=== PATIENT | female | born 1955 | race Caucasian/White ===

== ENCOUNTER 2016-11-14 15:43 | Emergency (ER) | payer BC ==
[2016-11-14 16:45] VITALS: BP 149/91
== END 2016-11-14 17:00 | disposition left against medical advice (07) ==
LOC: UCEAST 15:43
DX: R10.9 Unspecified abdominal pain (principal); Z53.21 Procedure and treatment not carried out due to patient leaving prior to being seen by health care provider

== ENCOUNTER 2016-11-14 17:22 | Emergency (ER) | payer BC ==
[2016-11-14 17:27] VITALS: BP 163/99
[2016-11-14 18:35] LABS: Hematocrit 43 % (35-47); Hemoglobin 14.4 g/dl (12.0-16.0); Mean Corpuscular HGB Conc 33 g/dl (31-36); Mean Corpuscular Hemoglobin 31 pg (27-31); Mean Corpuscular Volume 92 fL (80-97); Mean Platelet Volume 8 um3 (7.4-10.4); Red Blood Count 4.68 10^6/ul (4.0-5.4); Red Cell Distribution Width 14 % (10.5-15); White Blood Count 5.9 10^3/ul (3.5-10.8)
[2016-11-14 18:52] LABS: ALT 14 U/L (7-52); AST 18 U/L (13-39); Albumin 4.5 g/dL (3.2-5.2); Alkaline Phosphatase 59 U/L (34-104); Amylase 54 U/L (29-103); Anion Gap 5 mmol/L (2-11); BUN/Creatinine Ratio 11.8 (8-20); Blood Urea Nitrogen 9 mg/dL (6-24); C Reactive Protein < 1.00 mg/L (< 5.00); CO2 Carbon Dioxide 29 mmol/L (22-32); Calcium 9.7 mg/dL (8.6-10.3); Chloride 97 mmol/L (101-111); EGFR African American 100.2 (>60); EGFR Non-African American 77.9 (>60); Glucose 93 mg/dL (70-100); Lipase 13 U/L (11.0-82.0); Potassium 3.6 mmol/L (3.5-5.0); Sodium 131 mmol/L (133-145); Total Protein 7.5 g/dL (6.4-8.9)
--- NOTE | 2016-11-14 19:12 | RAD ---
INDICATION: ] Right upper quadrant pain COMPARISON: Complete abdominal sonogram August 27, 2014 TECHNIQUE: Longitudinal and transverse scans of the right upper quadrant were obtained. Doppler interrogation of the hepatic and portal venous system was performed. FINDINGS: Liver: The liver is normal in size and echogenicity. There is a 1 cm right hepatic cyst, unchanged. The liver measures 12.8 cm in cephalocaudal dimension. Vessels: There is normal hepatic and portal venous flow. Bile ducts: There is no evidence of intrahepatic or extrahepatic ductal dilatation. The common duct measures 0.8 cm. Gallbladder: The sonographic appearance of the gallbladder is normal. There is no evidence of cholelithiasis, thickening of the gallbladder wall, or pericholecystic fluid. Pancreas: The visualized pancreas appears normal Right kidney: The right kidney is normal in size and echogenicity. There are no masses or calculi. There is no evidence of hydronephrosis. The right kidney measures 9.9 x 4.3 x 5.4 cm. IVC and aorta: The aorta and superior vena cava appear normal. Fluid: There is no ascites. Other: None. IMPRESSION: NORMAL GALLBLADDER. MILDLY PROMINENT COMMON DUCT, UNCHANGED. STABLE HEPATIC CYST, UNCHANGED
--- NOTE | 2016-11-14 20:39 | ED ---
Dana Lomeli Erika, scribed for Clifton Layton MD on 11/14/16 at 1800 . Abdominal Pain/Female - HPI Summary HPI Summary: Patient is a 61-year-old female presenting to the ED with a CC of right-sided abdominal pain. Patient reports she woke up at 02:45 this morning, and then developed the pain at 03:45. She reports the pain lasted for 1-1.5 hours, and was aggravated by movement. Patient had associated diarrhea and lightheadedness , both of which have resolved. Currently, patient denies any symptoms. She reports that she had the same symptoms in the past. Pt was sent to the ED by her PCP Dr. Neri. Hx melanoma, HTN. At this time, pt declines US and CT and would just like blood work. - History of Current Complaint Chief Complaint: EDAbdPain Stated Complaint: ABD PAIN Time Seen by Provider: 11/14/16 17:45 Hx Obtained From: Patient Onset/Duration: Sudden Onset, Lasting Hours - 1 hour, Resolved Timing: Constant Severity Initially: Moderate Severity Currently: None Pain Intensity: 0 Pain Scale Used: 0-10 Numeric Location: Discrete At: RUQ, Discrete At: RLQ Radiates: No Aggravating Factor(s): Movement Alleviating Factor(s): Spontaneous Resolution Associated Signs and Symptoms: Positive: Diarrhea, Other: - lightheadedness Allergies/Adverse Reactions: Allergies Allergy/AdvReac Type Severity Reaction Status Date / Time Latex AdvReac Mild irritates Verified 11/14/16 16:29 skin PMH/Surg Hx/FS Hx/Imm Hx Endocrine/Hematology History: Denies: Hx Diabetes, Hx Thyroid Disease Cardiovascular History: Reports: Hx Hypertension Denies: Hx Pacemaker/ICD Respiratory History: Denies: Hx Asthma, Hx Chronic Obstructive Pulmonary Disease (COPD) GI History: Reports: Hx Gastroesophageal Reflux Disease - OCCASSIONAL IN PAST, HAS MEDS, DOESN'T TAKE, Hx Irritable Bowel - Hx OF, NO CURRENT Sx or MEDS Denies: Hx Ulcer History: Denies: Hx Renal Disease Musculoskeletal History: Reports: Hx Arthritis - FEET, LOW BACK, NECK Sensory History: Denies: Hx Hearing Aid Neurological History: Reports: Hx Headaches Comment Only: Hx Migraine - Hx OF, NONE IN 10 YEARS Psychiatric History: Denies: Hx Panic Disorder - Cancer History Cancer Type, Location and Year: Melanoma- in bwn toes Hx Chemotherapy: No Hx Radiation Therapy: No - Surgical History Surgery Procedure, Year, and Place: in 40's had oophorectomy and hysterectomy. BREAST IMPLANTS - SALINE. BIOPSY - NECK, AXILARY, - BENIGN Hx Anesthesia Reactions: Yes - AFTER HYSTERECTOMY N/V Infectious Disease History: No Infectious Disease History: Denies: Hx Hepatitis, Hx Human Immunodeficiency Virus (HIV), Traveled Outside the [place] in Last 30 Days - Family History Family History: Denies FHx breast cancer - Social History Lives: With Family Alcohol Use: Occasionally Alcohol Amount: MAYBE 1-2 DRINKS/MONTH Hx Substance Use: No Substance Use Type: Reports: None Hx Tobacco Use: No Smoking Status (MU): Never Smoked Tobacco Have You Smoked in the Last Year: No Review of Systems Positive: Abdominal Pain, Diarrhea Neurological: Other - lightheadedness All Other Systems Reviewed And Are Negative: Yes Physical Exam - Summary Physical Exam Summary: VITAL SIGNS: Reviewed. GENERAL: Patient is a well developed and nourished female who is lying comfortable in the stretcher. Patient is not in any acute respiratory distress. HEAD AND FACE: Normocephalic and atraumatic. EYES: PERRLA, EOMI x 2, No injected conjunctiva. EARS: Hearing grossly intact. Ear canals and tympanic membranes are WNL. MOUTH: Oropharynx within normal limits. NECK: Supple, trachea is midline, no adenopathy, no JVD. CHEST: Symmetric, no tenderness at palpation LUNGS: Clear to auscultation bilaterally. No wheezing or crackles. CVS: RRR,, S1 and S2 present, no murmurs or gallops appreciated. ABDOMEN: Soft, non-tender. No signs of distention. Positive bowel sounds. No rebound no guarding, and no masses palpated. No abdominal bruit or pulsations. EXTREMITIES: FROM in all major joints, no edema, no cyanosis or clubbing. NEURO: Alert and oriented x 3. No acute neurological deficits. Speech is normal. SKIN: Dry and warm Triage Information Reviewed: Yes Vital Signs On Initial Exam: Initial Vitals Temp Pulse Resp BP Pulse Ox 98 F 78 18 163/99 100 11/14/16 17:22 11/14/16 17:22 11/14/16 17:22 11/14/16 17:22 11/14/16 17:22 Vital Signs Reviewed: Yes Diagnostics - Vital Signs Vital Signs Temp Pulse Resp BP Pulse Ox 11/14/16 17:22 98 F 78 18 163/99 100 - Laboratory Lab Results: Lab Results 11/14/16 Range/Units 18:15 WBC 5.9 (3.5-10.8) 10^3/ul RBC 4.68 (4.0-5.4) 10^6/ul Hgb 14.4 (12.0-16.0) g/dl Hct 43 (35-47) % MCV 92 (80-97) fL MCH 31 (27-31) pg MCHC 33 (31-36) g/dl RDW 14 (10.5-15) % Plt Count 315 (150-450) 10^3/ul MPV 8 (7.4-10.4) um3 Neut % (Auto) 52.6 (38-83) % Lymph % (Auto) 39.5 (25-47) % [place] % (Auto) 5.8 (1-9) % Eos % (Auto) 1.3 (0-6) % Baso % (Auto) 0.8 (0-2) % Absolute Neuts (auto) 3.1 (1.5-7.7) 10^3/ul Absolute Lymphs (auto) 2.3 (1.0-4.8) 10^3/ul Absolute Monos (auto) 0.3 (0-0.8) 10^3/ul Absolute Eos (auto) 0.1 (0-0.6) 10^3/ul Absolute Basos (auto) 0 (0-0.2) 10^3/ul Absolute Nucleated RBC 0 10^3/ul Nucleated RBC % 0 Result Diagrams: 11/14/16 18:15 11/14/16 18:15 Lab Statement: Any lab studies that have been ordered have been reviewed, and results considered in the medical decision making process. - Ultrasound No standard instances Ultrasound Interpretation Completed By: Radiologist - Abdomen US - IMPRESSION: NORMAL GALLBLADDER. MILDLY PROMINENT COMMON DUCT, UNCHANGED. STABLE HEPATIC CYST , UNCHANGED Abdominal Pain Fem Course/Dx - Course Course Of Treatment: Patient is a 61-year-old female presenting to the ED with a CC of right-sided abdominal pain. Patient reports she woke up at 02:45 this morning, and then developed the pain at 03:45. She reports the pain lasted for 1 -1.5 hours, and was aggravated by movement. Patient had associated diarrhea and lightheadedness, both of which have resolved. Currently, patient denies any symptoms. She reports that she had the same symptoms in the past. Pt was sent to the ED by her PCP Dr. Neri. Hx melanoma, HTN. At this time, pt declines US and CT and would just like blood work. She reports that she has had too many abdominal and pelvic CT's already. Blood work WNL except for a sodium of 131. WBC is normal. The pt does not have an increased WBC'S or increased CRP. RUQ US shows no change from previous, rest of reports as above. I discussed the findings and test results with the pt, and she still declines the CT A/P which was recommended by Dr. Neri. She is recommended to follow up tomorrow with Dr. Neri, and if needed, he could order an outpatient CT A/P if the patient agrees. At this point the patient continues to be asymptomatic, and the PE at discharge shows the abdomen is soft and non-tender with positive bowel sounds. The patient is A&Ox3 and hemodynamically stable. I discusse the case with Dr. Jimenez. She agrees with plan. - Diagnoses Differential Diagnosis: Positive: Appendicitis, Constipation, Diverticulitis, Gall Bladder Disease, Pancreatitis, Urinary Tract Infection Provider Diagnoses: Abdominal pain - Provider Notifications Discussed Care Of Patient With: Dr. Jimenez (from pt's PCP group) at 18:13 - agrees that if the patient wants the CT and US, they should be done, and if not , all the concerns can be directed to the PCP. Discharge - Discharge Plan Condition: Stable Disposition: HOME Patient Education Materials: Abdominal Pain (ED) Referrals: Ravin Neri MD [Primary Care Provider] - 1 Day Additional Instructions: Please follow up with Dr. Neri tomorrow. The documentation as recorded by the Dana cantrell Erika accurately reflects the service I personally performed and the decisions made by me, Clifton Layton MD.
== END 2016-11-14 19:45 | disposition home or self-care (01) ==
LOC: ED 17:22
DX: R10.84 Generalized abdominal pain (principal); R19.7 Diarrhea, unspecified; R42 Dizziness and giddiness
CPT/HCPCS: 36415; 76705; 80053; 82150; 83690; 85025; 86140; 99282

== ENCOUNTER 2017-01-25 17:23 | Emergency (ER) | payer BC ==
[2017-01-25 17:44] VITALS: BP 160/90
--- NOTE | 2017-01-25 18:20 | UC ---
Dizzy HPI HPI Summary: AFTER WORK TODAY WAS RUNNING SOME ERRANDS AND WAS IN THE GREENHOUSE FOR A SHORT WHILE. AROUND 3PM SHE DEVELOPED A SENSATION OF LIGHTHEADEDNESS AND FELT LIKE SHE WAS GOING TO PASS OUT. HAS FELT "OFF" SINCE THEN. NO SOB OR CP. NO LOC. HAS SOME NECK PAIN AND LOOMIS. HAS A STRESSFUL JOB. HAD A SIMILAR EXPERIENCE OVER 10 YEARS AGO THAT RESOLVED SPONTANEOUSLY. HAS UNTREATED BP. - History Of Current Complaint Chief Complaint: UCDizziness Stated Complaint: DIZZINESS Time Seen by Provider: 01/25/17 17:45 Hx Obtained From: Patient Onset/Duration: Sudden Onset, Lasting Hours, Still Present Timing: Constant Severity Initially: Moderate Severity Currently: Moderate Pain Intensity: 0 Pain Scale Used: 0-10 Numeric Character: Lightheaded, Dizzy Aggravating Factor(s): Nothing Alleviating Factor(s): Nothing - Allergies/Home Medications Allergies/Adverse Reactions: Allergies Allergy/AdvReac Type Severity Reaction Status Date / Time Latex AdvReac Mild irritates Verified 01/25/17 17:31 skin PMH/Surg Hx/FS Hx/Imm Hx Endocrine History Of: Denies: Diabetes, Thyroid Disease Cardiovascular History Of: Reports: Cardiac Disorders - some irregularity follows up with pcp, Hypertension Denies: Pacemaker/ICD Respiratory History Of: Denies: COPD, Asthma GI/ History Of: Denies: Ulcer, Renal Disease Neurological History Of: Comment Only: Migraine - Hx OF, NONE IN 10 YEARS Cancer History Of: Denies: Breast Cancer - Surgical History Surgical History: Yes Surgery Procedure, Year, and Place: in 40's had oophorectomy and hysterectomy. BREAST IMPLANTS - SALINE. BIOPSY - NECK, AXILARY, - BENIGN - Family History Known Family History: Positive: Cardiac Disease, Hypertension, Diabetes Family History: Denies FHx breast cancer - Social History Alcohol Use: Occasionally Alcohol Amount: MAYBE 1-2 DRINKS/MONTH Substance Use Type: None Smoking Status (MU): Never Smoked Tobacco Have You Smoked in the Last Year: No - Immunization History Most Recent Influenza Vaccination: None Review of Systems Constitutional: Negative Respiratory: Negative Cardiovascular: Negative Gastrointestinal: Negative Musculoskeletal: Other: - NECK PAIN Neurological: Headache, Other - DIZZY All Other Systems Reviewed And Are Negative: Yes Physical Exam Triage Information Reviewed: Yes Appearance: Well-Appearing, No Pain Distress, Well-Nourished Vital Signs: Initial Vital Signs Temp 98.6 F 01/25/17 17:27 Pulse 85 01/25/17 17:27 Resp 16 01/25/17 17:27 BP 198/115 01/25/17 17:27 Pulse Ox 97 01/25/17 17:27 Vital Signs Reviewed: Yes Eyes: Positive: Conjunctiva Clear ENT: Positive: Hearing grossly normal Neck: Positive: Supple, Nontender, No Lymphadenopathy Respiratory Exam: Normal Cardiovascular Exam: Normal Abdomen Description: Positive: Soft Musculoskeletal: Positive: No Edema Neurological: Positive: Alert Psychological: Positive: Age Appropriate Behavior Skin: Negative: rashes Diagnostics - EKG Cardiac Rate: NL - 82BPM Cardiac Rhythm: Sinus: Normal Ectopy: None ST Segment: Normal Dizzy Course/Dx - Differential Dx/Diagnosis Provider Diagnoses: DIZZINESS, PRESYNCOPE, ELEVATED BP - Physician Notifications Discussed Patient Care With: LUC MARTINEZ Time Discussed With Above Provider: 18:00 - TO [facility]BULANCE Discharge - Discharge Plan Condition: Stable Disposition: TRANS HIGHER LVL OF CARE FAC Referrals: Ravin Neri MD [Primary Care Provider] -
== END 2017-01-25 18:15 | disposition short-term general hospital (02) ==
LOC: UCEAST 17:23
DX: R42 Dizziness and giddiness (principal); R55 Syncope and collapse; R03.0 Elevated blood-pressure reading, without diagnosis of hypertension; Z91.040 Latex allergy status; I10 Essential (primary) hypertension; Z90.710 Acquired absence of both cervix and uterus
CPT/HCPCS: 93005; 99213; G0463

== ENCOUNTER 2017-01-25 18:38 | Emergency (ER) | payer BC ==
[2017-01-25 20:24] LABS: Urine Bilirubin Negative (Negative); Urine Glucose Negative (Negative); Urine Nitrite Negative (Negative)
[2017-01-25 20:52] LABS: Hematocrit 41 % (35-47); Hemoglobin 13.7 g/dl (12.0-16.0); Mean Corpuscular HGB Conc 34 g/dl (31-36); Mean Corpuscular Hemoglobin 30 pg (27-31); Mean Corpuscular Volume 91 fL (80-97); Mean Platelet Volume 8 um3 (7.4-10.4); Red Blood Count 4.49 10^6/ul (4.0-5.4); Red Cell Distribution Width 13 % (10.5-15); White Blood Count 4.5 10^3/ul (3.5-10.8)
[2017-01-25 21:07] LABS: BUN/Creatinine Ratio 12.1 (8-20); Calcium 9.3 mg/dL (8.6-10.3); EGFR African American 117.9 (>60); EGFR Non-African American 91.7 (>60); Globulin 2.8 g/dL (2-4); Magnesium 2.1 mg/dL (1.9-2.7); Potassium 3.3 mmol/L (3.5-5.0); Total Bilirubin 0.6 mg/dL (0.2-1.0); Total Protein 6.8 g/dL (6.4-8.9)
[2017-01-25 21:08] LABS: Troponin I 0.01 ng/mL (<0.04)
[2017-01-25 21:43] LABS: TSH (Thyroid Stimulating Horm) 1.34 mcIU/mL (0.34-5.60)
[2017-01-25 22:06] VITALS: BP 130/78
--- NOTE | 2017-01-25 22:43 | ED ---
Dana Lomeli Erika, scribed for Hansel Villavicencio MD on 01/25/17 at 2007 . Syncope/Near Syncope - HPI Summary HPI Summary: Patient is a 61-year-old female presenting to the ED with a CC of lightheadedness. Patient reports she worked today and felt well, but then began feeling lightheaded around 15:00. Lightheadedness was constant, and not alleviated by lying down or drinking water. Pt notes polydipsia. She reports that lightheadedness has gradually worsened. Now, pt reports she feels weak and tired. She denies abdominal pain. Hx syncopal episodes in . - History Of Current Complaint Chief Complaint: EDSyncope Time Seen by Provider: 01/25/17 19:49 Hx Obtained From: Patient Onset/Duration: Gradual Onset, Lasting Hours, Still Present Timing: Constant Alleviating Factor(s): Nothing Associated Signs And Symptoms: Weakness, Other - fatigue - Allergies/Home Medications Allergies/Adverse Reactions: Allergies Allergy/AdvReac Type Severity Reaction Status Date / Time Latex AdvReac Mild irritates Verified 01/25/17 17:31 skin PMH/Surg Hx/FS Hx/Imm Hx Endocrine/Hematology History: Denies: Hx Diabetes, Hx Thyroid Disease Cardiovascular History: Reports: Hx Hypertension Denies: Hx Pacemaker/ICD Respiratory History: Denies: Hx Asthma, Hx Chronic Obstructive Pulmonary Disease (COPD) GI History: Reports: Hx Gastroesophageal Reflux Disease - OCCASSIONAL IN PAST, HAS MEDS, DOESN'T TAKE, Hx Irritable Bowel - Hx OF, NO CURRENT Sx or MEDS Denies: Hx Ulcer History: Denies: Hx Renal Disease Musculoskeletal History: Reports: Hx Arthritis - FEET, LOW BACK, NECK Sensory History: Denies: Hx Hearing Aid Neurological History: Reports: Hx Headaches Comment Only: Hx Migraine - Hx OF, NONE IN 10 YEARS Psychiatric History: Denies: Hx Panic Disorder - Cancer History Cancer Type, Location and Year: Melanoma- in bwn toes Hx Chemotherapy: No Hx Radiation Therapy: No - Surgical History Surgery Procedure, Year, and Place: in 40's had oophorectomy and hysterectomy. BREAST IMPLANTS - SALINE. BIOPSY - NECK, AXILARY, - BENIGN Hx Anesthesia Reactions: Yes - AFTER HYSTERECTOMY N/V Infectious Disease History: No Infectious Disease History: Denies: Hx Clostridium Difficile, Hx Hepatitis, Hx Human Immunodeficiency Virus (HIV), Traveled Outside the [place] in Last 30 Days - Family History Known Family History: Positive: Cardiac Disease, Hypertension, Diabetes Family History: Denies FHx breast cancer - Social History Alcohol Use: Occasionally Alcohol Amount: MAYBE 1-2 DRINKS/MONTH Hx Substance Use: No Substance Use Type: Reports: None Hx Tobacco Use: No Smoking Status (MU): Never Smoked Tobacco Have You Smoked in the Last Year: No Review of Systems Constitutional: Other - polydipsia Positive: Fatigue Negative: Abdominal Pain Neurological: Other - lightheadedness Positive: Weakness - generalized All Other Systems Reviewed And Are Negative: Yes Physical Exam Triage Information Reviewed: Yes Vital Signs On Initial Exam: Initial Vitals Temp Pulse Resp BP Pulse Ox 99.2 F 86 16 149/96 98 01/25/17 19:01 01/25/17 19:01 01/25/17 19:01 01/25/17 19:01 01/25/17 19:01 Vital Signs Reviewed: Yes Appearance: Positive: Well-Appearing, No Pain Distress Skin: Positive: Warm, Skin Color Reflects Adequate Perfusion, Dry Head/Face: Positive: Normal Head/Face Inspection Eyes: Positive: Normal ENT: Positive: Normal ENT inspection Neck: Positive: Supple, Nontender Respiratory/Lung Sounds: Positive: Clear to Auscultation, Breath Sounds Present Cardiovascular: Positive: RRR Abdomen Description: Positive: Nontender, Soft Bowel Sounds: Positive: Present Musculoskeletal: Positive: Normal Neurological: Positive: Normal Psychiatric: Positive: Affect/Mood Appropriate - [place] Coma Scale Coma Scale Total: 15 Diagnostics - Vital Signs Vital Signs Temp Pulse Resp BP Pulse Ox 01/25/17 19:01 99.2 F 86 16 149/96 98 - Laboratory Lab Results: Lab Results 01/25/17 01/25/17 01/25/17 Range/Units 19:18 20:40 20:40 WBC 4.5 (3.5-10.8) 10^3/ul RBC 4.49 (4.0-5.4) 10^6/ul Hgb 13.7 (12.0-16.0) g/dl Hct 41 (35-47) % MCV 91 (80-97) fL MCH 30 (27-31) pg MCHC 34 (31-36) g/dl RDW 13 (10.5-15) % Plt Count 282 (150-450) 10^3/ul MPV 8 (7.4-10.4) um3 Neut % (Auto) 42.0 (38-83) % Lymph % (Auto) 47.3 H (25-47) % [place] % (Auto) 7.6 (1-9) % Eos % (Auto) 1.9 (0-6) % Baso % (Auto) 1.2 (0-2) % Absolute Neuts (auto) 1.9 (1.5-7.7) 10^3/ul Absolute Lymphs (auto) 2.1 (1.0-4.8) 10^3/ul Absolute Monos (auto) 0.3 (0-0.8) 10^3/ul Absolute Eos (auto) 0.1 (0-0.6) 10^3/ul Absolute Basos (auto) 0.1 (0-0.2) 10^3/ul Absolute Nucleated RBC 0 10^3/ul Nucleated RBC % 0.1 D-Dimer, Quantitative (Less Than 230) ng/mL Sodium 128 L (133-145) mmol/L Potassium 3.3 L (3.5-5.0) mmol/L Chloride 94 L (101-111) mmol/L Carbon Dioxide 26 (22-32) mmol/L Anion Gap 8 (2-11) mmol/L BUN 8 (6-24) mg/dL Creatinine 0.66 (0.51-0.95) mg/dL Est GFR ( Amer) 117.9 (>60) Est GFR (Non-Af Amer) 91.7 (>60) BUN/Creatinine Ratio 12.1 (8-20) Glucose 85 (70-100) mg/dL Lactic Acid (0.5-2.0) mmol/L Calcium 9.3 (8.6-10.3) mg/dL Magnesium 2.1 (1.9-2.7) mg/dL Total Bilirubin 0.60 (0.2-1.0) mg/dL AST 18 (13-39) U/L ALT 13 (7-52) U/L Alkaline Phosphatase 63 (34-104) U/L Troponin I 0.01 (<0.04) ng/mL Total Protein 6.8 (6.4-8.9) g/dL Albumin 4.0 (3.2-5.2) g/dL Globulin 2.8 (2-4) g/dL Albumin/Globulin Ratio 1.4 (1-3) TSH 1.34 (0.34-5.60) mcIU/mL Urine Color Colorless Urine Appearance Clear Urine pH 8.0 (5-9) Ur Specific [place] 1.002 L (1.010-1.030) Urine Protein Negative (Negative) Urine Ketones Negative (Negative) Urine Blood Negative (Negative) Urine Nitrate Negative (Negative) Urine Bilirubin Negative (Negative) Urine Urobilinogen Negative (Negative) Ur Leukocyte Esterase Negative (Negative) Urine Glucose Negative (Negative) 01/25/17 01/25/17 Range/Units 20:40 20:40 WBC (3.5-10.8) 10^3/ul RBC (4.0-5.4) 10^6/ul Hgb (12.0-16.0) g/dl Hct (35-47) % MCV (80-97) fL MCH (27-31) pg MCHC (31-36) g/dl RDW (10.5-15) % Plt Count (150-450) 10^3/ul MPV (7.4-10.4) um3 Neut % (Auto) (38-83) % Lymph % (Auto) (25-47) % [place] % (Auto) (1-9) % Eos % (Auto) (0-6) % Baso % (Auto) (0-2) % Absolute Neuts (auto) (1.5-7.7) 10^3/ul Absolute Lymphs (auto) (1.0-4.8) 10^3/ul Absolute Monos (auto) (0-0.8) 10^3/ul Absolute Eos (auto) (0-0.6) 10^3/ul Absolute Basos (auto) (0-0.2) 10^3/ul Absolute Nucleated RBC 10^3/ul Nucleated RBC % D-Dimer, Quantitative < 200 (Less Than 230) ng/mL Sodium (133-145) mmol/L Potassium (3.5-5.0) mmol/L Chloride (101-111) mmol/L Carbon Dioxide (22-32) mmol/L Anion Gap (2-11) mmol/L BUN (6-24) mg/dL Creatinine (0.51-0.95) mg/dL Est GFR ( Amer) (>60) Est GFR (Non-Af Amer) (>60) BUN/Creatinine Ratio (8-20) Glucose (70-100) mg/dL Lactic Acid 0.5 (0.5-2.0) mmol/L Calcium (8.6-10.3) mg/dL Magnesium (1.9-2.7) mg/dL Total Bilirubin (0.2-1.0) mg/dL AST (13-39) U/L ALT (7-52) U/L Alkaline Phosphatase (34-104) U/L Troponin I (<0.04) ng/mL Total Protein (6.4-8.9) g/dL Albumin (3.2-5.2) g/dL Globulin (2-4) g/dL Albumin/Globulin Ratio (1-3) TSH (0.34-5.60) mcIU/mL Urine Color Urine Appearance Urine pH (5-9) Ur Specific [place] (1.010-1.030) Urine Protein (Negative) Urine Ketones (Negative) Urine Blood (Negative) Urine Nitrate (Negative) Urine Bilirubin (Negative) Urine Urobilinogen (Negative) Ur Leukocyte Esterase (Negative) Urine Glucose (Negative) Result Diagrams: 01/25/17 20:40 01/25/17 20:40 Lab Statement: Any lab studies that have been ordered have been reviewed, and results considered in the medical decision making process. - EKG 20:52 Cardiac Rate: NL - at 60 bpm EKG Rhythm: Sinus Rhythm Re-Evaluation - Re-Evaluation First Eval Re-Evaluation Time: 21:43 Comment: Discussed results with patient Course/Dx Course Of Treatment: Ms. Mary had a period of near syncope starting about 1630. She feels improved now but tired. She ambulated about here without difficulty and her exam was otherwise unremarkable. Her W/U was negative and her monitoring was normal. She will F/U. - Diagnoses Provider Diagnoses: Near syncope Discharge - Discharge Plan Condition: Stable Disposition: HOME Patient Education Materials: Near Syncope (ED) Referrals: Ravin Neri MD [Primary Care Provider] - 2 Days Additional Instructions: Please follow up with your PCP The documentation as recorded by the Dana cantrell Erika accurately reflects the service I personally performed and the decisions made by me, Hansel Villavicencio MD.
== END 2017-01-25 22:00 | disposition home or self-care (01) ==
LOC: ED 18:38
DX: R55 Syncope and collapse (principal); R53.1 Weakness; R53.83 Other fatigue; R42 Dizziness and giddiness
CPT/HCPCS: 36415; 80053; 81003; 83605; 83735; 84443; 84484; 85025; 85379; 93005; 99283

== ENCOUNTER 2017-01-27 08:24 | Emergency (ER) | payer BC ==
[2017-01-27 08:37] VITALS: BP 133/85
--- NOTE | 2017-01-27 10:55 | UC ---
Skin Complaint HPI - HPI Summary HPI Summary: TICK ON BACK SINCE YESTERDAY. REMOVED MOST OF IT BUT HEAD IS STILL IN THERE. WOULD LIKE PROPHYLAXIS AGAINST LYME DISEASE. NO FEVER, NO RASH, NO MUSCLE ACHES. - History of Current Complaint Chief Complaint: UCSkin Time Seen by Provider: 01/27/17 09:54 Stated Complaint: TICK BITE Hx Obtained From: Patient Onset/Duration: Sudden Onset, Lasting Hours, Still Present Skin Exposure Onset/Duration: Hours Ago Onset Severity: Mild Current Severity: None Pain Intensity: 0 Pain Scale Used: 0-10 Numeric Location: Discrete - RIGHT BACK Aggravating: Nothing Alleviating: Nothing Associated Signs & Symptoms: Positive: Rash Related History: Insect Bite/Sting, Possible Reaction to: Insect - Allergy/Home Medications Allergies/Adverse Reactions: Allergies Allergy/AdvReac Type Severity Reaction Status Date / Time Latex AdvReac Mild irritates Verified 01/25/17 17:31 skin Review of Systems Constitutional: Negative Skin: Other - RIGHT BACK, TICK FRAGMENT EMBEDDED IN SKIN Eyes: Negative ENT: Negative Respiratory: Negative Cardiovascular: Negative Gastrointestinal: Negative Genitourinary: Negative Motor: Negative Neurovascular: Negative Musculoskeletal: Negative Neurological: Negative Psychological: Negative All Other Systems Reviewed And Are Negative: Yes PMH/Surg Hx/FS Hx/Imm Hx Previously Healthy: Yes Endocrine History Of: Denies: Diabetes, Thyroid Disease Cardiovascular History Of: Reports: Cardiac Disorders - some irregularity follows up with pcp, Hypertension Denies: Pacemaker/ICD Respiratory History Of: Denies: COPD, Asthma GI/ History Of: Denies: Ulcer, Renal Disease Neurological History Of: Comment Only: Migraine - Hx OF, NONE IN 10 YEARS Cancer History Of: Denies: Breast Cancer - Surgical History Surgical History: Yes Surgery Procedure, Year, and Place: in 40's had oophorectomy and hysterectomy. BREAST IMPLANTS - SALINE. BIOPSY - NECK, AXILARY, - BENIGN - Family History Known Family History: Positive: Cardiac Disease, Hypertension, Diabetes Family History: Denies FHx breast cancer - Social History Occupation: Employed Full-time Lives: With Family Alcohol Use: Occasionally Alcohol Amount: MAYBE 1-2 DRINKS/MONTH Substance Use Type: None Smoking Status (MU): Never Smoked Tobacco Have You Smoked in the Last Year: No - Immunization History Most Recent Influenza Vaccination: None Physical Exam Triage Information Reviewed: Yes Appearance: Well-Appearing, No Pain Distress, Well-Nourished Vital Signs: Initial Vital Signs Temp 98.7 F 01/27/17 08:32 Pulse 73 01/27/17 08:32 Resp 16 01/27/17 08:32 BP 133/85 01/27/17 08:32 Pulse Ox 100 01/27/17 08:32 Vital Signs Reviewed: Yes Eye Exam: Normal ENT Exam: Normal ENT: Positive: Normal ENT inspection, Hearing grossly normal, Pharynx normal, TMs normal Dental Exam: Normal Neck exam: Normal Neck: Positive: Supple, Nontender Respiratory Exam: Normal Respiratory: Positive: Chest non-tender, Lungs clear, Normal breath sounds, No respiratory distress Cardiovascular Exam: Normal Cardiovascular: Positive: RRR, No Murmur, Pulses Normal Abdominal Exam: Normal Musculoskeletal Exam: Normal Musculoskeletal: Positive: Strength Intact, ROM Intact Neurological Exam: Normal Psychological Exam: Normal Skin: Positive: Other - TICK FRAGMENT IN RIGHT MID BACK - Additional Comments TICK FRAGMENT IN RIGHT MID BACK REMOVED USING FORCEPS AND ALCOHOL PADS. PATIENT TOLERATED PROCEDURE WELL Course/Dx - Differential Diagnoses - Skin Complaint Differential Diagnoses: Cellulitis, Tick Born Illness - Diagnoses Provider Diagnoses: TICK FRAGMENT REMOVAL. TICK BITE PROPHYLAXIS Discharge - Discharge Plan Condition: Stable Disposition: HOME Prescriptions: DOXYcycline CAP(*) [DOXYcycline 100MG CAP(*)] 100 mg PO ONCE #2 cap Patient Education Materials: Tick Bite (ED) Referrals: Ravin Neri MD [Primary Care Provider] - Images Front/Back of Body, Lg (Rock): 1 - TICK FRAGMENT IN RIGHT MID BACK
== END 2017-01-27 10:09 | disposition home or self-care (01) ==
LOC: UCEAST 08:24
DX: S20.461A Insect bite (nonvenomous) of right back wall of thorax, initial encounter (principal); W57.XXXA Bitten or stung by nonvenomous insect and other nonvenomous arthropods, initial encounter; Y93.9 Activity, unspecified; Y92.9 Unspecified place or not applicable; I10 Essential (primary) hypertension; Z90.710 Acquired absence of both cervix and uterus; Z91.040 Latex allergy status
CPT/HCPCS: 99212; G0463

== ENCOUNTER 2018-06-11 09:46 | Emergency (ER) | payer BC ==
[2018-06-11 11:06] VITALS: BP 141/98
[2018-06-11] MEDS ORDERED: Al Hydrox/Mg Hydrox/Simet LIQ* 30 ML UDC PO ONE (12:59)
[2018-06-11] MEDS ORDERED: Ondansetron ODT TAB* 4 MG PO ONE (12:59)
--- NOTE | 2018-06-11 13:24 | RAD ---
Indication: Headache. TMJ syndrome. Jaw pain, stiff neck, bilateral ear pain. Vomiting and weakness. Comparison: March 01, 2007 MRI. Technique: Noncontrast CT vertex of skull through foramen magnum. Report: The sulci, ventricles, and basal cisterns are normal for age. Sullivan matter white matter differentiation is preserved without evidence for edema. No intra or extra axial hemorrhage, mass, or fluid collection detected. Unremarkable visualized orbital contents. Unremarkable calvarium and skull base. Unremarkable scalp. The visualized paranasal sinuses and mastoid air spaces are clear. IMPRESSION: #. Negative unenhanced CT of the brain for age.
--- NOTE | 2018-06-11 14:02 | UC ---
Headache HPI - HPI Summary HPI Summary: 62-year-old woman comes to clinic today with a chief complaint of headache nausea vomiting and sore throat. Patient started with a bitemporal bilateral jaw pain headache about 2 weeks ago. At times the pain has been very severe in her face . Initially thought it was TMJ syndrome. She's been seen by her primary care doctor. Another concern was the potential for Lyme disease. She is on doxycycline 100 mg by mouth twice a day at this time she's been on for 3 days. The nausea and vomiting and sore throat with a burning sensation in the throat occurred since the start of the doxycycline. No weakness or numbness no fevers. The pain is at its worst and both of the temporal lobes she also has pain in the upper neck. In the evening she will be awoken by the headache and she'll be nauseous and she will be able to go back to sleep and by sitting up she "feels somewhat better. The headache is intermittent at its worse it severe but it could also be quite mild. No difficulties with speech or vision. - History Of Current Complaint Chief Complaint: UCHeadache Stated Complaint: HEADACHE, AND VOMITING Time Seen by Provider: 06/11/18 12:19 Pain Intensity: 7 - Allergies/Home Medications Allergies/Adverse Reactions: Allergies Allergy/AdvReac Type Severity Reaction Status Date / Time latex Allergy See Comment Verified 06/11/18 11:06 Home Medications: Home Medications Butalb/Acetaminophen/Caffeine [Esgic 50-325-40 mg] 1 tab PO 06/11/18 [History] DOXYcycline CAP(*) [DOXYcycline 100MG CAP(*)] 100 mg PO BID 06/11/18 [History Confirmed 06/11/18] PMH/Surg Hx/FS Hx/Imm Hx GI/ History: Gastroesophageal Reflux - Surgical History Surgical History: Yes Surgery Procedure, Year, and Place: in 40's had oophorectomy and hysterectomy. BREAST IMPLANTS - SALINE. BIOPSY - NECK, AXILARY, - BENIGN - Family History Known Family History: Positive: Cardiac Disease, Hypertension, Diabetes Family History: Denies FHx breast cancer - Social History Alcohol Use: Occasionally Alcohol Amount: MAYBE 1-2 DRINKS/MONTH Substance Use Type: None Smoking Status (MU): Never Smoked Tobacco Have You Smoked in the Last Year: No - Immunization History Most Recent Influenza Vaccination: None Review of Systems Constitutional: Negative Skin: Negative Eyes: Negative ENT: Sore Throat Respiratory: Negative Cardiovascular: Negative Gastrointestinal: Vomiting, Nausea Motor: Negative Neurovascular: Negative Musculoskeletal: Negative Neurological: Headache - See history of present illness Psychological: Negative Is Patient Immunocompromised?: No All Other Systems Reviewed And Are Negative: Yes Physical Exam Triage Information Reviewed: Yes Appearance: Well-Appearing, Well-Nourished, Pain Distress - MILDLY ILL APPEARING , IS MILDLY NAUSEOUS Vital Signs: Initial Vital Signs Temp 98.5 F 06/11/18 11:00 Pulse 99 06/11/18 11:00 Resp 18 06/11/18 11:00 BP 141/98 06/11/18 11:00 Pulse Ox 99 06/11/18 11:00 Vital Signs Reviewed: Yes ENT: Positive: Pharyngeal erythema, TMs normal Neck exam: Normal Neck: Positive: Supple, Nontender. Negative: Nuchal Rigidity Respiratory Exam: Normal Respiratory: Positive: Normal breath sounds, No respiratory distress, No accessory muscle use Cardiovascular Exam: Normal Cardiovascular: Positive: RRR Musculoskeletal Exam: Normal Musculoskeletal: Positive: Strength Intact, ROM Intact Neurological Exam: Normal Neurological: Positive: Alert, Muscle Tone Normal Psychological Exam: Normal Psychological: Positive: Normal Response To Family Skin Exam: Normal Headache Course/Dx - Course Course Of Treatment: Order Information: CT BRAIN WO. Accession Number: [id number]. CPT: 81280. Indication: Headache. TMJ syndrome. Jaw pain, stiff neck, bilateral ear pain. Vomiting and. weakness. Comparison: March 01, 2007 MRI. Technique: Noncontrast CT vertex of skull through foramen magnum. Report : The sulci, ventricles, and basal cisterns are normal for age. Sullivan matter white. matter differentiation is preserved without evidence for edema. No intra or extra axial. hemorrhage, mass, or fluid collection detected. Unremarkable visualized orbital contents. Unremarkable calvarium and skull base. Unremarkable scalp. The visualized paranasal sinuses and mastoid air spaces are clear. IMPRESSION: #. Negative unenhanced CT of the brain for age. . < Electronically signed by Clifton Peters MD in OV> 06/11/18 1321. I discussed the CT results with the patient. Her primary care doctor is facilitating an MRI examination. Here I will start her on Zofran and stop the doxycycline as it may be causing her nausea. I will start amoxicillin instead of the doxycycline. Blood work pending includes a CRP CBC CMP and Lyme screen. We discussed the signs and symptoms of a hemorrhagic bleed in the brain and the need for spinal tap to diagnose it if is not shown on CT. the patient's headache came on gradually and not suddenly and it does wax and wane in intensity making this less likely to be a hemorrhagic bleed. No fever no obvious signs of meningitis at this time. Good of the pain is into the face also making it less likely to be a cerebral CAUSE. We also discussed restarting her antacid medicine. The patient will follow up with her primary care doctor. We discussed further evaluation emergency department if her conditions worsens or she has any further concerns. - Differential Dx/Diagnosis Provider Diagnoses: HEADACHE. FACE PAIN. NAUSEA Discharge - Sign-Out/Discharge Documenting (check all that apply): Patient Departure All imaging exams completed and their final reports reviewed: Yes - Discharge Plan Condition: Stable Disposition: HOME Prescriptions: Amoxicillin PO (*) [Amoxicillin 500 MG CAP*] 500 mg PO TID #42 cap Ondansetron ODT TAB* [Zofran 4 MG Odt TAB*] 4 mg PO Q6H PRN #15 tab.odt PRN Reason: Nausea Patient Education Materials: Acute Headache (ED), Acute Nausea and Vomiting (ED ) Referrals: Ravin Neri MD [Primary Care Provider] - Additional Instructions: FOLLOW UP WITH YOUR DOCTOR. RESTART YOUR ANTACID MEDICATION. GO TO THE EMERGENCY DEPARTMENT FOR ANY WORSENING OF YOUR CONDITION; WEAKNESS, NUMBNESS, PAIN, DIFFICULTY WITH VISION OR SPEECH OR QUESTIONS OR CONCERNS. - Billing Disposition and Condition Condition: STABLE Disposition: Home
[2018-06-11 18:34] LABS: ABS Basophils 0 10^3/ul (0-0.2); ABS Eosinophils 0 10^3/ul (0-0.6); ABS Lymphocytes 1.7 10^3/ul (1.0-4.8); ABS Monocytes 0.5 10^3/ul (0-0.8); ABS Neutrophils 3.5 10^3/ul (1.5-7.7); ABS Nucleated RBC 0 10^3/ul; Eosinophil % 0.5 % (0-6); Hematocrit 42 % (35-47); Hemoglobin 15.3 g/dl (12.0-16.0); Lymphocyte % 29.3 % (25-47); Mean Corpuscular HGB Conc 36 g/dl (31-36); Mean Corpuscular Hemoglobin 32 pg (27-31); Mean Corpuscular Volume 87 fL (80-97); Mean Platelet Volume 7.6 um3 (7.4-10.4); Nucleated Red Blood Cells % 0; Platelet Count 504 10^3/ul (150-450); Red Blood Count 4.84 10^6/ul (4.00-5.40); Red Cell Distribution Width 12 % (10.5-15); White Blood Count 5.8 10^3/ul (3.5-10.8)
--- NOTE | 2018-06-12 09:57 | ED ---
Progress - Progress Note Progress Note: Patient's lab work from June 11, 2018 came back today showing a sodium of 120 Nursing to call patient and recommend evaluation in the emergency department to recheck her sodium has a symptomatic hyponatremia may warrant admission to the hospital. Course/Dx - Course Course Of Treatment: Order Information: CT BRAIN WO. Accession Number: [id number]. CPT: 00556. Indication: Headache. TMJ syndrome. Jaw pain, stiff neck, bilateral ear pain. Vomiting and. weakness. Comparison: March 01, 2007 MRI. Technique: Noncontrast CT vertex of skull through foramen magnum. Report : The sulci, ventricles, and basal cisterns are normal for age. Sullivan matter white. matter differentiation is preserved without evidence for edema. No intra or extra axial. hemorrhage, mass, or fluid collection detected. Unremarkable visualized orbital contents. Unremarkable calvarium and skull base. Unremarkable scalp. The visualized paranasal sinuses and mastoid air spaces are clear. IMPRESSION: #. Negative unenhanced CT of the brain for age. . < Electronically signed by Clifton Peters MD in OV> 06/11/18 1321. I discussed the CT results with the patient. Her primary care doctor is facilitating an MRI examination. Here I will start her on Zofran and stop the doxycycline as it may be causing her nausea. I will start amoxicillin instead of the doxycycline. Blood work pending includes a CRP CBC CMP and Lyme screen. We discussed the signs and symptoms of a hemorrhagic bleed in the brain and the need for spinal tap to diagnose it if is not shown on CT. the patient's headache came on gradually and not suddenly and it does wax and wane in intensity making this less likely to be a hemorrhagic bleed. No fever no obvious signs of meningitis at this time. Good of the pain is into the face also making it less likely to be a cerebral CAUSE. We also discussed restarting her antacid medicine. The patient will follow up with her primary care doctor. We discussed further evaluation emergency department if her conditions worsens or she has any further concerns. Discharge - Sign-Out/Discharge Documenting (check all that apply): Patient Departure All imaging exams completed and their final reports reviewed: Yes - Discharge Plan Condition: Stable Disposition: HOME Prescriptions: Amoxicillin PO (*) [Amoxicillin 500 MG CAP*] 500 mg PO TID #42 cap Ondansetron ODT TAB* [Zofran 4 MG Odt TAB*] 4 mg PO Q6H PRN #15 tab.odt PRN Reason: Nausea Patient Education Materials: Acute Headache (ED), Acute Nausea and Vomiting (ED ) Referrals: Ravin Neri MD [Primary Care Provider] - Additional Instructions: FOLLOW UP WITH YOUR DOCTOR. RESTART YOUR ANTACID MEDICATION. GO TO THE EMERGENCY DEPARTMENT FOR ANY WORSENING OF YOUR CONDITION; WEAKNESS, NUMBNESS, PAIN, DIFFICULTY WITH VISION OR SPEECH OR QUESTIONS OR CONCERNS. - Billing Disposition and Condition Condition: STABLE Disposition: Home
== END 2018-06-11 14:35 | disposition home or self-care (01) ==
LOC: UCEAST 09:46
DX: R51 Headache (principal); R11.2 Nausea with vomiting, unspecified; J02.9 Acute pharyngitis, unspecified; Z91.040 Latex allergy status
CPT/HCPCS: 36415; 70450; 80053; 85025; 86140; 86618; 99212; A9270-GY; G0463

== ENCOUNTER 2018-06-12 11:11 | Observation (INO) | payer BC ==
[2018-06-12] MEDS ORDERED: Ondansetron INJ* 2 MG/ML VIAL IV ONE (12:13)
[2018-06-12] MEDS ORDERED: NS 0.9% 1000 ML* 1,000 ML IV ONE (12:13)
[2018-06-12] MEDS ORDERED: Famotidine IV* 10 MG/ML 2 ML (20 mg) IV ONE (12:13)
--- NOTE | 2018-06-12 12:27 | ED ---
Complex/Multi-Sys Presentation - HPI Summary HPI Summary: Patient is a 62 y/o female sent from who presents to the ED c/o low sodium. Shes been sick recently and has been for 4 different physicians for her illness. Several days ago her PCP, Dr. Neri, instructed her to stop taking her muscle relaxers and pain medications, and started her on a heavy duty antibiotic. After starting this, she was extremely fatigued and has been vomiting non-stop. She also c/o headache, mild dizziness, mild constipation, and impaired balance. Patient is unable to keep any food or liquids down, so is dehydrated. She denies any cough, diarrhea, SOB, or CP. She was found to have a low sodium at the and was instructed to come to the ED for fluids. - History Of Current Complaint Chief Complaint: EDGeneral Time Seen by Provider: 06/12/18 11:40 Hx Obtained From: Patient Onset/Duration: Gradual Onset, Lasting Days - Over 1 week, Still Present Timing: Constant Location: Pain At: - Headache Character: Typical Headache Aggravating Factor(s): Antibiotics Alleviating Factor(s): Nothing Associated Signs And Symptoms: Positive: Dizziness, Headache, Nausea, Vomiting. Negative: SOB, Cough, Chest Pain, Diarrhea - Allergies/Home Medications Allergies/Adverse Reactions: Allergies Allergy/AdvReac Type Severity Reaction Status Date / Time latex Allergy See Comment Verified 06/11/18 11:06 Home Medications: Home Medications Cyclobenzaprine TAB* [Flexeril 10 MG TAB*] 5 - 10 mg PO BEDTIME PRN 06/12/18 [ History Confirmed 06/12/18] PMH/Surg Hx/FS Hx/Imm Hx Endocrine/Hematology History: Denies: Hx Diabetes, Hx Thyroid Disease Cardiovascular History: Reports: Hx Hypertension Denies: Hx Pacemaker/ICD Respiratory History: Denies: Hx Asthma, Hx Chronic Obstructive Pulmonary Disease (COPD) GI History: Reports: Hx Gastroesophageal Reflux Disease - OCCASSIONAL IN PAST, HAS MEDS, DOESN'T TAKE, Hx Irritable Bowel - Hx OF, NO CURRENT Sx or MEDS Denies: Hx Ulcer History: Denies: Hx Renal Disease Musculoskeletal History: Reports: Hx Arthritis - FEET, LOW BACK, NECK Sensory History: Denies: Hx Hearing Aid Neurological History: Reports: Hx Headaches Comment Only: Hx Migraine - Hx OF, NONE IN 10 YEARS Psychiatric History: Denies: Hx Panic Disorder - Cancer History Cancer Type, Location and Year: Melanoma- in bwn toes Hx Chemotherapy: No Hx Radiation Therapy: No - Surgical History Surgery Procedure, Year, and Place: in 40's had oophorectomy and hysterectomy. BREAST IMPLANTS - SALINE. BIOPSY - NECK, AXILARY, - BENIGN Hx Anesthesia Reactions: Yes - AFTER HYSTERECTOMY N/V Infectious Disease History: No Infectious Disease History: Denies: Hx Clostridium Difficile, Hx Hepatitis, Hx Human Immunodeficiency Virus (HIV), Traveled Outside the [place] in Last 30 Days - Family History Known Family History: Positive: Cardiac Disease, Hypertension, Diabetes, Other - No breast CA - Social History Alcohol Use: Occasionally Alcohol Amount: MAYBE 1-2 DRINKS/MONTH Hx Substance Use: No Substance Use Type: Reports: None Hx Tobacco Use: No Smoking Status (MU): Never Smoked Tobacco Have You Smoked in the Last Year: No Review of Systems Positive: Fatigue Negative: Chest Pain Negative: Shortness Of Breath, Cough Positive: Vomiting, Nausea, Other - Constipation, dehyrdation. Negative: Diarrhea Neurological: Other - Dizziness, impaired balance Positive: Headache All Other Systems Reviewed And Are Negative: Yes Physical Exam - Summary Physical Exam Summary: VITAL SIGNS: Reviewed. GENERAL: Patient is a well-developed and nourished FEMALE who is lying comfortable in the stretcher. Patient is not in any acute respiratory distress. HEAD AND FACE: No signs of trauma. No ecchymosis, hematomas or skull depressions. No sinus tenderness. EYES: PERRLA, EOMI x 2, No injected conjunctiva, no nystagmus. EARS: Hearing grossly intact. Ear canals and tympanic membranes are within normal limits. MOUTH: Dry oral mucosa. NECK: Supple, trachea is midline, no adenopathy, no JVD, no carotid bruit, no c- spine tenderness, neck with full ROM. CHEST: Symmetric, no tenderness at palpation LUNGS: Clear to auscultation bilaterally. No wheezing or crackles. CVS: Regular rate and rhythm, S1 and S2 present, no murmurs or gallops appreciated. ABDOMEN: Soft, non-tender. No signs of distention. No rebound no guarding, and no masses palpated. Bowel sounds are normal. EXTREMITIES: FROM in all major joints, no edema, no cyanosis or clubbing. NEURO: Alert and oriented x 3. No acute neurological deficits. Speech is normal and follows commands. SKIN: Dry and warm. Increased turgor. Triage Information Reviewed: Yes Vital Signs On Initial Exam: Initial Vitals Temp Pulse Resp BP Pulse Ox 98.2 F 81 10 103/69 99 06/12/18 11:31 06/12/18 11:31 06/12/18 11:31 06/12/18 11:31 06/12/18 11:31 Vital Signs Reviewed: Yes Diagnostics - Vital Signs Vital Signs Temp Pulse Resp BP Pulse Ox 06/12/18 11:32 76 13 103/69 99 06/12/18 11:31 98.2 F 83 12 103/69 99 - Laboratory Result Diagrams: 06/14/18 05:23 06/14/18 05:23 Lab Statement: Any lab studies that have been ordered have been reviewed, and results considered in the medical decision making process. - Radiology CXR Xray Interpretation: No Acute Changes - NO ACTIVE CARDIOPULMONARY DISEASE. ED physician reviewed radiology report. Radiology Interpretation Completed By: Radiologist - EKG 13:13 Cardiac Rate: NL - 66 bpm EKG Rhythm: Sinus Rhythm EKG Interpretation: No ST elevations Complex Multi-Symp Course/Dx Assessment/Plan: Patient is a 62 y/o female sent from who presents to the ED c/o low sodium. Shes been sick recently and has been for 4 different physicians for her illness. Several days ago her PCP, Dr. Neri, instructed her to stop taking her muscle relaxers and pain medications, and started her on a heavy duty antibiotic. After starting this, she was extremely fatigued and has been vomiting non-stop. She also c/o headache, mild dizziness, mild constipation, and impaired balance. Patient is unable to keep any food or liquids down, so is dehydrated. She denies any cough, diarrhea, SOB, or CP. She was found to have a low sodium at the and was instructed to come to the ED for fluids. Blood test results without any significant abnormality except for sodium of 122, glucose 105. EKG shows a normal sinus rhythm without ST elevations. In the ED course the patient was given IV fluids, the patient is to hemodynamically stable. Because of the symptomatic hyponatremia discussed my physical exam and findings with Dr. Stallworth who accepted the patient for admission. At this point the patient is hemodynamically stable alert oriented 3. - Diagnoses Provider Diagnoses: Hyponatremia - Physician Notifications Discussed Care Of Patient With: Wilbert Stallworth Time Discussed With Above Provider: 13:30 Instructed by Provider To: Admit As Inpatient Discharge - Sign-Out/Discharge Documenting (check all that apply): Patient Departure - Admit - Discharge Plan Condition: Stable Disposition: ADMITTED TO [facility] - Billing Disposition and Condition Condition: STABLE Disposition: Admitted to [facility] - Attestation Statements Document Initiated by Scribe: Yes Documenting Scribe: Delfina Goodwin Provider For Whom Corrine is Documenting (Include Credential): Clifton Layton MD Scribe Attestation: Delfina Lomeli, scribed for Clifton Layton MD on 06/14/18 at 0909. Scribe Documentation Reviewed: Yes Provider Attestation: The documentation as recorded by the Delfina cantrell accurately reflects the service I personally performed and the decisions made by , Clifton Layton MD
[2018-06-12 12:48] LABS: ABS Basophils 0 10^3/ul (0-0.2); ABS Eosinophils 0 10^3/ul (0-0.6); ABS Lymphocytes 1.5 10^3/ul (1.0-4.8); ABS Monocytes 0.5 10^3/ul (0-0.8); ABS Neutrophils 3.1 10^3/ul (1.5-7.7); ABS Nucleated RBC 0 10^3/ul; Eosinophil % 0.8 % (0-6); Hematocrit 38 % (35-47); Hemoglobin 13.3 g/dl (12.0-16.0); Lymphocyte % 29.3 % (25-47); Mean Corpuscular HGB Conc 35 g/dl (31-36); Mean Corpuscular Hemoglobin 31 pg (27-31); Mean Corpuscular Volume 88 fL (80-97); Mean Platelet Volume 6.8 um3 (7.4-10.4); Nucleated Red Blood Cells % 0; Platelet Count 409 10^3/ul (150-450); Red Blood Count 4.32 10^6/ul (4.00-5.40); Red Cell Distribution Width 12 % (10.5-15); White Blood Count 5.3 10^3/ul (3.5-10.8)
[2018-06-12 13:06] LABS: EGFR Non-African American 74.2 (>60)
[2018-06-12] MEDS ORDERED: Ondansetron INJ* 2 MG/ML VIAL IV PRN (14:19)
--- NOTE | 2018-06-12 14:25 | RAD ---
HISTORY: confusion COMPARISONS: None VIEWS: 1: frontal AP view of the chest at 1:15 PM FINDINGS: LINES AND TUBES: None. CARDIOMEDIASTINAL SILHOUETTE: The cardiomediastinal silhouette is normal for portable technique. PLEURA: The costophrenic angles are sharp. No pleural abnormalities are noted. LUNG PARENCHYMA: The lungs are clear. ABDOMEN: The upper abdomen is clear. There is no subphrenic gas. BONES AND SOFT TISSUES: No bone or soft tissue abnormalities are noted. IMPRESSION: NO ACTIVE CARDIOPULMONARY DISEASE.
[2018-06-12] MEDS ORDERED: NS 0.9% 1000 ML* 1,000 ML IV SCH (14:30)
[2018-06-12 15:08] LABS: Urine Appearance Clear; Urine Blood Negative (Negative); Urine Color Straw; Urine Ketones Negative (Negative); Urine Protein Negative (Negative); Urine Specific Gravity 1.002 (1.010-1.030); Urine Urobilinogen Negative (Negative)
[2018-06-12 19:26] LABS: EGFR Non-African American 96.4 (>60)
--- NOTE | 2018-06-12 21:47 | HP ---
CC: Dr. Neri * HISTORY AND PHYSICAL: DATE OF ADMISSION: 06/12/18 PRIMARY CARE PROVIDER: Dr. Neri. ATTENDING PHYSICIAN WHILE IN THE HOSPITAL: Fabrice Stallworth MD * (report dictated by Donavan Lewis NP) CHIEF COMPLAINT: Abnormal labs. HISTORY OF PRESENT ILLNESS: Mrs. Mary is a 62-year-old female patient. She has a history of melanoma and GERD. She recently in the last few weeks has not been feeling well. She states initially it started out with her just having feeling discomfort in her jaw bilaterally, in addition to this also having bilateral temporal pain. She states that she has been following with her PCP for this and undergoing extensive workup for this. They concluded that perhaps she had Lyme's. She was started on doxycycline and amoxicillin. Because the doxycycline was not agreeing with her, there was concern because she was having some blurry vision in her right eye intermittently, she saw her eye doctor. They thought maybe it was an allergy. She states the blurry vision is now gone and the jaw pain is better but over the weekend, she has had nausea and vomiting. She also did have some, again the jaw discomfort. There were no reports of blistering or rashes. She had no reports of reproducible pain in her temples. She states that she has not been aching all over or had any other body or joint aching. She has no fevers or chills, but there was nausea and vomiting. She was concerned because her symptoms just were not getting any better. She has been on multiple medications. She has been on pain medications for the jaw. She has been on Flexeril for the jaw. Despite this, she just was not feeling good. Over the weekend, she had significant amount of vomiting and nausea. She was seen in urgent care yesterday. She had a CT of the brain, which was negative. She had lab work done by her primary that she had done at urgent care, which ultimately came back and showed a low sodium. She was then referred to the emergency room for evaluation. She was evaluated today. She states that the pain in her temples has gotten better than she states her jaws, feeling a little bit better. She is scheduled for an outpatient MRI tomorrow but because of the hyponatremia, we were asked to evaluate for admission. PAST MEDICAL HISTORY: Significant for: 1. Melanoma. 2. GERD. PAST SURGICAL HISTORY: 1. She has had hysterectomy. 2. She has had skin excision for the melanoma. 3. Breast implantations. MEDICATIONS: Home medications include: 1. Flexeril 5 to 10 mg p.o. at bedtime as needed. 2. Zofran 4 mg p.o. every 6 hours as needed. 3. Doxycycline 100 mg p.o. b.i.d., which is now stopped and she has been switched to amoxicillin 500 mg t.i.d. 4. Butalbital with Tylenol and caffeine 1 tablet every 4 hours as needed. ALLERGIES TO MEDICATIONS: Include LATEX. FAMILY HISTORY: Mother had a history of heart disease. Father had a history of lung cancer. SOCIAL HISTORY: She does not smoke. She rarely drinks alcohol. Surrogate decision maker is her , Lv. REVIEW OF SYSTEMS: There is no documented fever. She denied having any significant weight change. There was no double vision. She denies having any ear discharge. She denied having any rhinorrhea. There was no sore throat. There was no thyroid enlargement. There was no chest pain. There is no orthopnea. There was nausea and vomiting. There was no dysuria. No frequency. There was no seizure. She denied having any loss of consciousness. There is no pruritus. There are no skin ulcerations. There has been no dysuria. No frequency. No seizure. No loss of consciousness. No pruritus and no skin ulceration. There was nausea and vomiting but again no abdominal pain. Review of 14 systems was completed, all others negative. PHYSICAL EXAMINATION GENERAL: At this time, Mrs. Mary is a 62-year-old female patient. She is sitting in the ED stretcher. She appears to be well nourished and well developed. VITAL SIGNS: Blood pressure 111/77, pulse 71, respirations 18, O2 sat 98%, temperature 98.2. HEENT: Head: Atraumatic/normocephalic. Eyes: EOMs are intact. Sclerae anicteric and not pale. Throat: Oral mucosa appears to be moist. No oropharyngeal erythema. NECK: Supple. HEART: Sounds S1, S2. She had a regular rate and rhythm. There were no murmurs, rubs, or gallops. LUNGS: Clear to auscultation bilaterally. There was no wheezes, rales, or rhonchi. ABDOMEN: Soft. It was flat. It was nontender. Bowel sounds were present. EXTREMITIES: Pulses were 2+ throughout. She is moving all 4 extremities with 5 /5 strength. NEUROLOGIC: The patient is awake. She is alert. She is oriented x3. She had no gross focal deficits. SKIN: Grossly intact. LABORATORY DATA/DIAGNOSTIC STUDIES: WBC of 5.3, RBC 4.32, hemoglobin 13.3, hematocrit 38, platelet count of 409,000. Sodium was 122, potassium was 3.7, chloride was 88, her bicarb was 28, BUN was 14, creatinine 0.79, glucose 105. Lactate 1.0. Calcium 9.2. Mag 2.0. Total bili 0.4, AST 13, ALT 9, alk phos 65. Ammonia 34. CK 51. Troponin 0.01. CRP 6.11. BNP 21. Albumin 3.8. TSH pending. Lipase is normal. She did have a chest x-ray obtained today. Chest x-ray shows a normal chest. There are no pleural effusions or any noted infiltrates or pulmonary edema. EKG shows a normal sinus rhythm, rate of 68, no ST elevations or T wave inversions. Old medical records were reviewed. ASSESSMENT AND PLAN: Mrs. Mary is a 62-year-old female patient coming into the ED today with complaints of nausea, vomiting. In addition to this, found to have abnormal lab work. She will be admitted under observation status for: 1. Hyponatremia. I suspect this is probably secondary to nausea and vomiting that she was having, probably secondary to doxycycline use and the GI upset from this. She now, since stopping this, is feeling better; however, the sodium now is 122. My plan would be to go ahead and give her normal saline at 125 an hour and then follow her BMP every 6 hours. If her sodium corrects, she can be discharged tomorrow. 2. Bilateral jaw pain with headaches. She has again had a negative CT scan. She is following with her PCP. She has an MRI of the jaw scheduled for tomorrow , which can be done tomorrow. I am checking an ESR and a CRP. If these are elevated, we could pursue further workup. 3. Melanoma. Follow with her PCP. 4. Gastroesophageal reflux disease. Continue PPI therapy. 5. DVT prophylaxis. She has been placed on SCDs. 6. Code status. She is a full code. 7. Fluids, electrolytes, and nutrition. She can have a regular diet. TIME SPENT: On admission 60 minutes, greater than half the time spent face-to- face with the patient obtaining my history and physical; other half time spent going over the plan of care with the patient and implementing plan of care. I did discuss the plan of care with my attending, Dr. Stallworth; he is in agreement. DONAVAN LEWIS, GHADA [id number]/CPS #: [id number] BRITTANY
[2018-06-12] MEDS: Amoxicillin PO (*) 500 MG CAP PO SCH (21:54)
[2018-06-12] MEDS: Acetaminophen TAB* 325 MG PO PRN (21:57)
[2018-06-13 05:58] LABS: ABS Basophils 0 10^3/ul (0-0.2); ABS Eosinophils 0.1 10^3/ul (0-0.6); ABS Lymphocytes 1.8 10^3/ul (1.0-4.8); ABS Monocytes 0.5 10^3/ul (0-0.8); ABS Neutrophils 2.2 10^3/ul (1.5-7.7); ABS Nucleated RBC 0 10^3/ul; Eosinophil % 1.9 % (0-6); Hematocrit 38 % (35-47); Lymphocyte % 39.3 % (25-47); Mean Corpuscular HGB Conc 35 g/dl (31-36); Mean Corpuscular Hemoglobin 31 pg (27-31); Mean Corpuscular Volume 89 fL (80-97); Mean Platelet Volume 7.2 um3 (7.4-10.4); Nucleated Red Blood Cells % 0.2; Platelet Count 376 10^3/ul (150-450); Red Blood Count 4.23 10^6/ul (4.00-5.40); Red Cell Distribution Width 13 % (10.5-15); White Blood Count 4.5 10^3/ul (3.5-10.8)
[2018-06-13 06:03] LABS: INR 0.98 (0.77-1.02)
[2018-06-13 07:20] LABS: EGFR Non-African American 110.4 (>60)
[2018-06-13] MEDS: Amoxicillin PO (*) 500 MG CAP PO SCH ×3 (09:13→21:45)
--- NOTE | 2018-06-13 16:40 | PN ---
Subjective Date of Service: 06/13/18 Interval History: Pt seen and examined. Meds and labs reviewed. CC: LOOMIS, intermittent ROS: Denied dizziness, F/C, N/V, CP, SOB, increased cough, sputum production, abd pain, diarrhea, constipation, dysuria, myalgias, arthralgias, throat pain, and new skin lesions. The rest of the 14 point ROS are unremarkable. PHYSICAL EXAM: GEN APPEARANCE: Awake, not in acute distress HEENT: NC/AT, PERRLA, moist oral mucosa, (-) throat erythema NECK: Soft, supple, (-) cervical LAD, (-)JVD HEART: S1S2 WNL, RRR, No MRG CHEST: CTA, BL, GAE, No W/R/R ABD: Soft, ND/NT, NABS 4x Q EXT: No C/C/E SKIN: Warm to touch PSYCH: No active psychosis, hallucinations, depression, SI/HI Objective Active Medications: Acetaminophen (Tylenol Tab*) 650 mg PO Q4H PRN PRN Reason: FEVER/PAIN Last Admin: 06/12/18 21:57 Dose: 650 mg Amoxicillin (Amoxicillin Po (*)) 500 mg PO TID CLAUDIA Last Admin: 06/13/18 14:10 Dose: Not Given Ondansetron HCl (Zofran Inj*) 4 mg IV Q6H PRN PRN Reason: NAUSEA Vital Signs - 8 hr 06/13/18 06/13/18 11:23 15:24 Temperature 98.1 F 97.6 F Pulse Rate 63 72 Respiratory 16 20 Rate Blood Pressure 144/88 110/70 (mmHg) O2 Sat by Pulse 99 100 Oximetry Oxygen Devices in Use Now: None Result Diagrams: 06/13/18 05:30 06/13/18 05:30 Assess/Plan/Problems-Billing Assessment: - Patient Problems (1) Hyponatremia Current Visit: Yes Status: Acute Code(s): E87.1 - HYPO-OSMOLALITY AND HYPONATREMIA SNOMED Code(s): 50857679 Comment: -Improving -May have some component of psychogenic polydipsia on presentation given Urine Sodium and specific gravity were low on presentation (2) Headache Current Visit: Yes Status: Acute Code(s): R51 - HEADACHE SNOMED Code(s): 36619053 Comment: -Possibly due to TMJ which she has an MRI schedule for her jaw on Monday as outpt -Will check MRA to look for aneurysm as well as MRI of head w/w/o contrast to evaluate for masses (3) GERD (gastroesophageal reflux disease) Current Visit: Yes Status: Acute Code(s): K21.9 - GASTRO-ESOPHAGEAL REFLUX DISEASE WITHOUT ESOPHAGITIS SNOMED Code(s): 125746157 Comment: -Continue Famotidine (4) Melanoma Current Visit: Yes Status: Acute Code(s): C43.9 - MALIGNANT MELANOMA OF SKIN , UNSPECIFIED SNOMED Code(s): 540214663 Comment: -Defer F/U with pts PCP/Derm as outpt (5) DVT (deep venous thrombosis) Current Visit: Yes Status: Acute Code(s): I82.409 - ACUTE EMBOLISM AND THOMBOS UNSP DEEP VN UNSP LOWER EXTREMITY SNOMED Code(s): 349776275 Comment: -Continue SCDs Status and Disposition: -For possible D/C in AM if imaging studies above unremarkable
[2018-06-13] MEDS ORDERED: Gadoteridol* (CONTRAST) 279.3 MG/ML 10 ML IV ONE (20:48)
[2018-06-13] MEDS ORDERED: MELATONIN 3 MG PO PRN (21:09)
--- NOTE | 2018-06-13 21:36 | RAD ---
EXAM: MR Angiography Head Without Intravenous Contrast CLINICAL HISTORY: 62 years old, female; Pain and signs and symptoms; Visual disturbance; Other visual defect; Headache; Patient HX: C/O headache in bilat temporal regions w/ jaw pain and blurred vision; Additional info: Please eval for aneurysm TECHNIQUE: Magnetic resonance angiography images of the head without intravenous contrast. COMPARISON: BRAIN WO CT BRAIN WO 06/11/2018 1:12 PM FINDINGS: Right internal carotid artery: Normal. Intracranial segment is patent with no significant stenosis. No aneurysm. Right anterior cerebral artery: Normal. No occlusion or significant stenosis. No aneurysm. Right middle cerebral artery: Normal. No occlusion or significant stenosis. No aneurysm. Right posterior cerebral artery: Normal. No occlusion or significant stenosis. No aneurysm. Right vertebral artery: Miniscule right vertebral artery which is otherwise patent. Left internal carotid artery: Normal. Intracranial segment is patent with no significant stenosis. No aneurysm. Left anterior cerebral artery: Normal. No occlusion or significant stenosis. No aneurysm. Left middle cerebral artery: Normal. No occlusion or significant stenosis. No aneurysm. Left posterior cerebral artery: Normal. No occlusion or significant stenosis. No aneurysm. Left vertebral artery: Normal as visualized. Basilar artery: Normal. No occlusion or significant stenosis. No aneurysm. IMPRESSION: Normal head MRA. To contact [facility] with a general question: [facility] - [phone] For direct physician to physician contact: Physician Hotline - [phone] [facility] ([facility] Facility ID #[id number])
--- NOTE | 2018-06-13 21:51 | RAD ---
EXAM: MR Head Without And With Intravenous Contrast CLINICAL HISTORY: 62 years old, female; Pain and signs and symptoms; Other: Blurred vision; Other: Temporal and jaw pain; Patient HX: H/o of melanoma. Complaint of bilateral temporal and jaw pain with blurred vision; Additional info: Please eval for mass TECHNIQUE: Magnetic resonance images of the head/brain without and with intravenous contrast in multiple planes. CONTRAST: 11 mL of PROHANCE administered intravenously. COMPARISON: MRAHEAD WO MRA HEAD W/O 06/13/2018 8:40 PM, BRAIN WO CT BRAIN WO 06/11/2018 1:12:27 PM FINDINGS: Brain: A few scattered T2/flair hyperintensity is seen throughout the periventricular and subcortical white matter with no associated restricted diffusion or postcontrast enhancement. Otherwise normal walter-white matter differentiation. No extra-axial fluid collections, intraparenchymal hemorrhage, enhancing masses, or midline shift. Ventricles: Normal. No ventriculomegaly. Bones/joints: T2/flair hyperintensity within the left temporal bone (series 7/8, image 20/20) which shows no restricted diffusion and fairly homogeneous postcontrast enhancement (series 10, image 18). Lesion appears as prominent vascular structures on CT. Remaining marrow signal is normal. Sinuses: Normal as visualized. No acute sinusitis. Mastoid air cells: Normal as visualized. No mastoid effusion. Orbits: Normal as visualized. Other vasculature: Normal vascular flow voids. IMPRESSION: 1. No intracranial metastases. 2. Mild periventricular and subcortical low attenuation without adjacent mass effect. 3. Left temporal bone AVN or hemangioma. To contact [facility] with a general question: [facility] - [phone] For direct physician to physician contact: Physician Hotline - [phone] [facility] ([facility] Facility ID #[id number])
[2018-06-14 06:04] LABS: Hematocrit 36 % (35-47); Hemoglobin 12.7 g/dl (12.0-16.0); Mean Corpuscular HGB Conc 35 g/dl (31-36); Mean Corpuscular Hemoglobin 31 pg (27-31); Mean Corpuscular Volume 89 fL (80-97); Mean Platelet Volume 7.5 um3 (7.4-10.4); Platelet Count 379 10^3/ul (150-450); Red Blood Count 4.12 10^6/ul (4.00-5.40); Red Cell Distribution Width 13 % (10.5-15); White Blood Count 6.1 10^3/ul (3.5-10.8)
[2018-06-14 07:01] LABS: EGFR Non-African American 112.7 (>60)
[2018-06-14] MEDS: Acetaminophen TAB* 325 MG PO PRN (07:31)
[2018-06-14] MEDS: Amoxicillin PO (*) 500 MG CAP PO SCH ×2 (07:34→15:42)
[2018-06-14 16:54] VITALS: BP 137/86
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
--- NOTE | 2018-06-15 04:11 | DS ---
CC: Dr. Fabrice Stallworth; Dr. Clifton Layton; Dr. Shannon Langley; Dr. Ravin Neri * DISCHARGE SUMMARY: DATE OF ADMISSION: DATE OF DISCHARGE: 06/14/18. DATE OF SERVICE: 06/14/18. DISCHARGE MEDICATIONS: Tylenol 650 mg p.o. q.4 p.r.n. The patient not on any medications at home and refuses to take any recently prescribed medications, which she thought may have caused more of her headache pain that she presented with. DISCHARGE DIAGNOSES: Are as follows: 1. 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 2. Headache likely exacerbated by hyponatremia secondary to above versus temporomandibular joint problems versus new onset late presentation of migraines. HISTORY OF PRESENT ILLNESS/HOSPITAL COURSE: The patient is a 62-year-old lady with history of GERD and melanoma, who in the last few weeks has not been feeling well. She started out with a feeling of discomfort in her jaw bilaterally accompanied by bilateral temporal pain. She mentioned that she has been following with her PCP and has had some extensive workup for this as an outpatient and concluded that perhaps that she had Lyme's. She was placed on doxycycline and then subsequently she was also placed on amoxicillin. She felt that these medications somewhat exacerbated her symptoms and hence she stopped taking them and presented to the ED complaining of some blurriness of her vision in the right eye intermittently, which is now gone, but over the weekend has had some nausea and vomiting. She was also prescribed Flexeril, however, this also made her not feel well and hence she stopped taking it. She had a CT scan of her head the day prior to her admission, which was otherwise unremarkable. Given her history of melanoma, although in its earliest stages, she had a workup for an MRI, MRA of her brain to rule out for any metastatic lesions and/ or masses as well as for any aneurysms. It was negative for any masses and/or metastatic lesions, and she did not have cerebral aneurysms on the MRA. The MRI , however, did reveal some incidental left temporal AVN or hemangioma, which does not explain her symptoms and hence likely an incidental finding given her pain is bitemporal as well as her jaw pain. She was also found to be hyponatremic as an outpatient, which led to an advisement by her primary care physician for her to be seen in the ED and hence she was admitted. Upon further inquiry, she mentions that she has been drinking more fluids than usual given this was advised to her by her PCP, and data from her urinalysis along with urine specific gravity as well as urine sodium suggest that she has had some polydipsia causing her hyponatremia and likely further exacerbating her headache, which is thought to either likely due to her hyponatremia that can increase muscle spasms versus a possible TMJ problem versus a new late onset migraine. Her ESR was found to be normal at 24 on admission and hence unlikely to be temporal arteritis, but it could certainly be reviewed upon followup with Dr. Harley or her primary care physician. She had been advised to follow up and/or call her PCP within 3 days postdischarge, to follow up with Dr. Harley in 3 to 4 weeks and to call [phone] to confirm/set up an appointment. She was advised to keep her MRI appointment for tomorrow for the MRI of her jaw to better evaluate her AVN and for possible TMJ problems and she was advised that if her symptoms resume or develop new ones or feel unwell for any reason to call her PCP, and if her PCP cannot entertain her due to scheduling issues alone, to call [facility] if her issue is nonemergent. She was advised to call my office regarding any questions, concerns or further clarifications regarding her discharge plans and prescriptions and to take her medications as prescribed. REVIEW OF SYSTEMS: All 14-point review of systems are otherwise unremarkable. PHYSICAL EXAMINATION: Showed some most recent vital signs of records with blood pressure of 112/82, 99.9 degrees Fahrenheit, 73 beats per minute heart rate, 14 per minute respiratory rate, saturating at 99% room air. General Appearance: The patient is awake, alert, and oriented x3, not in acute distress. HEENT: Normocephalic, atraumatic. PERRLA. Extraocular muscles are intact. Negative for icterus. Moist oral mucosa. Negative throat erythema. Neck is soft, supple with no cervical lymphadenopathy. No JVD. Heart: S1, S2 within normal limits. Regular rate and rhythm. No murmurs, rubs, or gallops. Chest: Clear to auscultation bilaterally. Good air entry. No wheezes, rales or rhonchi. Abdomen is soft, nondistended, nontender. Normoactive bowel sounds x4 Q. Extremities: No cyanosis, clubbing or edema. Psychiatric: No active psychosis, depression, suicidal, no homicidal ideations. Skin is warm to touch. Neurologic: CN II through XII intact, nonfocal. TIME SPENT: The total time spent evaluating the patient, reviewing pertinent data, and appropriate documentation is 65 minutes. Her MRI also revealed some mild periventricular and subcortical low attenuation without adjacent mass effect and has been clarified by Dr. Langley to be likely an incidental finding from her previous history of trauma and concussions and unlikely to explain her symptoms as discussed. [id number]/[facility] #: [id number] [facility]
== END 2018-06-14 16:00 | disposition home or self-care (01) ==
LOC: ED 11:11 → MEDTELE 14:37
PROVIDERS: ADMIT Internal Medicine; ATTEND Student in an Organized Health Care Education/Training Program
DX: E87.1 Hypo-osmolality and hyponatremia (principal); R51 Headache; R68.84 Jaw pain; K21.9 Gastro-esophageal reflux disease without esophagitis; Z79.899 Other long term (current) drug therapy; Z85.820 Personal history of malignant melanoma of skin; I10 Essential (primary) hypertension; H53.8 Other visual disturbances
CPT/HCPCS: 36415; 70544; 70553; 71045; 80048; 80053; 81003; 82140; 82550; 82570; 83605; 83690; 83735; 83880; 83930; 83935; 84100; 84300; 84443; 84484; 85025; 85027; 85610; 85652; 86140; 93005; 96361; 96374; 99283; A9270-GY; A9579; G0378; J2405

== ENCOUNTER 2018-12-31 09:52 | Emergency (ER) | payer BC ==
[2018-12-31 10:20] VITALS: BP 154/100
--- NOTE | 2018-12-31 10:45 | UC ---
Throat Pain/Nasal Victorino HPI - HPI Summary HPI Summary: 63 year old female followed by GI due to h/o indigetion, abdominal pains, underwent CT c/a/p 12/27, felt was dehydrated while given contrast and fearful that getting radiation/ contrast caused her current symptoms of burning in throat, burning with urination, + nausea since this AM. Patient has no history of kidney disease. Feels weak, fatigued, tired, achy all over, mild nausea, burning in throat. no cough, sinus pressure. no fever, chills. this weekend poor oral intake due to GI complaints, currently under evaluation. - History of Current Complaint Chief Complaint: UCGeneralIllness Stated Complaint: THROAT MURPHY WEAK PERSONAL Time Seen by Provider: 12/31/18 10:45 Hx Obtained From: Patient ?: No Onset/Duration: Sudden Onset, Lasting Days - since CT monday Severity: Mild Pain Intensity: 15 Pain Scale Used: 0-10 Numeric Associated Signs & Symptoms: Positive: Dysphagia - burning in throat - Allergies/Home Medications Allergies/Adverse Reactions: Allergies Allergy/AdvReac Type Severity Reaction Status Date / Time latex Allergy skin Verified 12/31/18 10:21 irritation PMH/Surg Hx/FS Hx/Imm Hx Previously Healthy: Yes - Surgical History Surgical History: Yes Surgery Procedure, Year, and Place: in 40's had oophorectomy and hysterectomy. BREAST IMPLANTS - SALINE. BIOPSY - NECK, AXILARY, - BENIGN - Family History Known Family History: Positive: Cardiac Disease, Hypertension, Diabetes, Other - No breast CA Family History: Denies FHx breast cancer - Social History Alcohol Use: Rare Alcohol Amount: MAYBE 1-2 DRINKS/MONTH Substance Use Type: None Smoking Status (MU): Never Smoked Tobacco Have You Smoked in the Last Year: No - Immunization History Most Recent Influenza Vaccination: None Review of Systems All Other Systems Reviewed And Are Negative: Yes Constitutional: Positive: Negative ENT: Positive: Sore Throat Musculoskeletal: Positive: Arthralgia, Myalgia Psychological: Positive: Anxious Is Patient Immunocompromised?: No Physical Exam Triage Information Reviewed: Yes Appearance: Well-Appearing, No Pain Distress, Well-Nourished Vital Signs: Initial Vital Signs Temp 98 F 12/31/18 10:16 Pulse 86 12/31/18 10:16 Resp 16 12/31/18 10:16 BP 154/100 12/31/18 10:16 Pulse Ox 100 12/31/18 10:16 Vital Signs Reviewed: Yes Eyes: Positive: Conjunctiva Clear ENT: Positive: Pharynx normal, TMs normal, Uvula midline. Negative: Pharyngeal erythema, Nasal congestion, Nasal drainage, TM bulging, TM dull, TM red, Tonsillar swelling, Tonsillar exudate, Sinus tenderness Dental Exam: Normal Neck: Positive: Supple, Nontender, No Lymphadenopathy. Negative: Nuchal Rigidity Respiratory: Positive: Chest non-tender, Lungs clear, Normal breath sounds, No respiratory distress, No accessory muscle use. Negative: Respiratory distress Cardiovascular: Positive: RRR, No Murmur Abdomen Description: Positive: No Organomegaly, Soft. Negative: CVA Tenderness (R), CVA Tenderness (L), Distended, Guarding Neurological Exam: Normal Skin Exam: Normal Throat Pain/Nasal Course/Dx - Course Course Of Treatment: likely viral URI, son recentl sick with same symtpoms, BMP to eval for kidneys, follow up with primary physician with repeat urinalyasis - Differential Dx/Diagnosis Provider Diagnosis: Dehydration Discharge - Sign-Out/Discharge Documenting (check all that apply): Patient Departure All imaging exams completed and their final reports reviewed: No Studies - Discharge Plan Condition: Good Disposition: HOME Prescriptions: Dextromethorphan/Benzocaine [Cepacol Sorethroat-Cough Chung] 1 each PO Q4H PRN # 40 lozenge PRN Reason: sore throat Patient Education Materials: Dehydration (ED), Viral Syndrome (ED) Referrals: Ravin Neri MD [Primary Care Provider] - Additional Instructions: - increase fluid intake - Blood work drawn today to evalute for kidney function - Follow up within 1-[address] neri for repeat UA - Tylenol as needed for symptoms - Over the counter medications for sore throat - Follow up with GI doctors - Billing Disposition and Condition Condition: GOOD Disposition: Home
[2018-12-31 16:54] LABS: Calcium 9.4 mg/dL (8.6-10.3); Potassium 3.5 mmol/L (3.5-5.0)
[2018-12-31 17:00] LABS: BUN/Creatinine Ratio 9.1 (8-20); EGFR Non-African American 112.4 (>60)
--- NOTE | 2018-12-31 23:19 | UC ---
- Progress Note Progress Note: Lab work from December 31, 2018 comes back showing a sodium of 113. Nursing called the patient and recommended they go the emergency department. Patient went to the emergency department and got admitted. Course/Dx - Diagnoses Provider Diagnoses: Dehydration Discharge - Sign-Out/Discharge Documenting (check all that apply): Patient Departure All imaging exams completed and their final reports reviewed: No Studies - Discharge Plan Condition: Good Disposition: HOME Patient Education Materials: Dehydration (ED), Viral Syndrome (ED) Referrals: Ravin Luna MD [Primary Care Provider] - Additional Instructions: - increase fluid intake - Blood work drawn today to evalute for kidney function - Follow up within 1-[address] luna for repeat UA - Tylenol as needed for symptoms - Over the counter medications for sore throat - Follow up with GI doctors - Billing Disposition and Condition Condition: GOOD Disposition: Home
== END 2018-12-31 12:02 | disposition home or self-care (01) ==
LOC: UCEAST 09:52
DX: E86.0 Dehydration (principal); R13.10 Dysphagia, unspecified; J02.9 Acute pharyngitis, unspecified; R03.0 Elevated blood-pressure reading, without diagnosis of hypertension; F41.9 Anxiety disorder, unspecified; Z91.040 Latex allergy status
CPT/HCPCS: 36415; 80048; 81003; 87651; 99212; G0463

== ENCOUNTER 2018-12-31 18:18 | Inpatient (IN) | payer BC ==
[2018-12-31] MEDS: NS 0.9% 1000 ML** 1,000 ML IV ONE ×2 (18:46→19:53)
[2018-12-31 18:53] LABS: ABS Basophils 0 10^3/ul (0-0.2); ABS Eosinophils 0.1 10^3/ul (0-0.6); ABS Lymphocytes 1.6 10^3/ul (1.0-4.8); ABS Monocytes 0.5 10^3/ul (0-0.8); ABS Neutrophils 3.4 10^3/ul (1.5-7.7); ABS Nucleated RBC 0 10^3/ul; Eosinophil % 1.2 %; Hematocrit 41 % (33-41); Lymphocyte % 28.6 %; Mean Corpuscular HGB Conc 34 g/dL (31-36); Mean Corpuscular Hemoglobin 28 pg (27-31); Mean Corpuscular Volume 81 fL (80-97); Mean Platelet Volume 6.6 fL (7.4-10.4); Nucleated Red Blood Cells % 0; Platelet Count 458 10^3/uL (150-450); Red Blood Count 5.06 10^6 /uL (3.70-4.87); Red Cell Distribution Width 16 % (10.5-15); White Blood Count 5.5 10^3/uL (3.5-10.8)
[2018-12-31 19:11] LABS: Albumin 4.6 g/dL (3.2-5.2); Albumin/Globulin Ratio 1.2 (1-3); BUN/Creatinine Ratio 6.6 (8-20); Calcium 9.6 mg/dL (8.6-10.3); EGFR African American 120.7 (>60); EGFR Non-African American 99.7 (>60); Globulin 3.7 g/dL (2-4); Potassium 2.8 mmol/L (3.5-5.0); Total Bilirubin 0.8 mg/dL (0.2-1.0); Total Protein 8.3 g/dL (6.4-8.9)
--- NOTE | 2018-12-31 19:11 | ED ---
Complex/Multi-Sys Presentation - HPI Summary HPI Summary: Patient is a 63 y/o female who presents to the ED c/o hyponatremia. As per , shes been ill for the past 4 months. Shes had multiple tests done but so far everything has been negative. They were at the earlier today because patient c/o burning in throat, nausea, dysuria, generalized weakness, fatigue, myalgia, CP, and weight loss. Patient denies any SOB. Bloodwork done at the revealed hyponatremia, and patient was called and instructed to come to the ED. notes that she was admitted in June 2018 for hyponatremia for 1 week. As per patient, she has a low sodium intake because of her recent HTN. She also states that she often gets indigestion and heartburn after eating certain foods, such as meat and coffee. - History Of Current Complaint Chief Complaint: EDGeneral Time Seen by Provider: 12/31/18 18:29 Hx Obtained From: Patient, Family/Innovation Manager - Onset/Duration: Gradual Onset, Lasting Weeks - 4 months, Still Present Timing: Constant Location: Pain At: - chest, throat Aggravating Factor(s): Nothing Alleviating Factor(s): Nothing Associated Signs And Symptoms: Positive: Weakness, Chest Pain, Nausea. Negative : SOB Related History: Recent Illness - past 4 months - Allergies/Home Medications Allergies/Adverse Reactions: Allergies Allergy/AdvReac Type Severity Reaction Status Date / Time adhesive Allergy Unknown Verified 12/31/18 13:28 Reaction Details latex Allergy skin Verified 12/31/18 10:21 irritation PMH/Surg Hx/FS Hx/Imm Hx Endocrine/Hematology History: Denies: Hx Diabetes, Hx Thyroid Disease Cardiovascular History: Denies: Hx Hypertension, Hx Myocardial Infarction, Hx Pacemaker/ICD Respiratory History: Denies: Hx Asthma, Hx Chronic Obstructive Pulmonary Disease (COPD) GI History: Reports: Hx Gastroesophageal Reflux Disease - OCCASSIONAL IN PAST, HAS MEDS, DOESN'T TAKE, Hx Irritable Bowel - Hx OF, NO CURRENT Sx or MEDS Denies: Hx Ulcer History: Denies: Hx Dialysis, Hx Renal Disease Musculoskeletal History: Reports: Hx Arthritis - FEET, LOW BACK, NECK Sensory History: Reports: Hx Contacts or Glasses Denies: Hx Hearing Aid Opthamlomology History: Reports: Hx Contacts or Glasses Neurological History: Reports: Hx Headaches Comment Only: Hx Migraine - Hx OF, NONE IN 10 YEARS Psychiatric History: Denies: Hx Panic Disorder - Cancer History Cancer Type, Location and Year: Melanoma- in bwn toes Hx Chemotherapy: No Hx Radiation Therapy: No - Surgical History Surgery Procedure, Year, and Place: in 40's had oophorectomy and hysterectomy. BREAST IMPLANTS - SALINE. BIOPSY - NECK, AXILARY, - BENIGN Hx Anesthesia Reactions: Yes - AFTER HYSTERECTOMY N/V Infectious Disease History: No Infectious Disease History: Denies: Hx Clostridium Difficile, Hx Hepatitis, Hx Human Immunodeficiency Virus (HIV), Traveled Outside the [place] in Last 30 Days - Family History Known Family History: Positive: Cardiac Disease, Hypertension, Diabetes, Other - No breast CA - Social History Alcohol Use: Rare Alcohol Amount: MAYBE 1-2 DRINKS/MONTH Hx Substance Use: No Substance Use Type: Reports: None Hx Tobacco Use: No Smoking Status (MU): Never Smoked Tobacco Have You Smoked in the Last Year: No Review of Systems Positive: Fatigue, Other - weight loss Positive: Sore Throat - burning Positive: Chest Pain Negative: Shortness Of Breath Positive: Nausea Positive: dysuria Positive: Myalgia Positive: Weakness - generalized All Other Systems Reviewed And Are Negative: Yes Physical Exam - Summary Physical Exam Summary: Appearance: Well appearing, no pain distress Skin: warm, dry, reflects adequate perfusion Head/face: normal Eyes: EOMI, SIKLE ENT: normal Neck: supple, non-tender Respiratory: CTA, breath sounds present Cardiovascular: RRR, pulses symmetrical Abdomen: non-tender, soft Musculoskeletal: normal, strength/ROM intact Neuro: normal, sensory motor intact, A&Ox3 Triage Information Reviewed: Yes Vital Signs On Initial Exam: Initial Vitals Temp Pulse Resp BP Pulse Ox 98.8 F 82 16 170/106 100 12/31/18 18:22 12/31/18 18:22 12/31/18 18:22 12/31/18 18:22 12/31/18 18:22 Vital Signs Reviewed: Yes Diagnostics - Vital Signs Vital Signs Temp Pulse Resp BP Pulse Ox 12/31/18 18:43 74 17 163/99 100 12/31/18 18:42 14 12/31/18 18:22 98.8 F 82 16 170/106 100 - Laboratory Lab Results: Lab Results 12/31/18 Range/Units 18:29 WBC 5.5 (3.5-10.8) 10^3/uL RBC 5.06 H (3.70-4.87) 10^6 /uL Hgb 14.0 (12.0-16.0) g/dL Hct 41 (33-41) % MCV 81 (80-97) fL MCH 28 (27-31) pg MCHC 34 (31-36) g/dL RDW 16 H (10.5-15) % Plt Count 458 H (150-450) 10^3/uL MPV 6.6 L (7.4-10.4) fL Neut % (Auto) 61.2 % Lymph % (Auto) 28.6 % [place] % (Auto) 8.6 % Eos % (Auto) 1.2 % Baso % (Auto) 0.4 % Absolute Neuts (auto) 3.4 (1.5-7.7) 10^3/ul Absolute Lymphs (auto) 1.6 (1.0-4.8) 10^3/ul Absolute Monos (auto) 0.5 (0-0.8) 10^3/ul Absolute Eos (auto) 0.1 (0-0.6) 10^3/ul Absolute Basos (auto) 0 (0-0.2) 10^3/ul Absolute Nucleated RBC 0 10^3/ul Nucleated RBC % 0 Result Diagrams: 12/31/18 18:29 12/31/18 18:29 Lab Statement: Any lab studies that have been ordered have been reviewed, and results considered in the medical decision making process. - Radiology CXR Radiology Interpretation Completed By: ED Physician Summary of Radiographic Findings: No acute infiltrate. Pending official radiology report. - EKG 18:36 Cardiac Rate: NL - 76 bpm EKG Rhythm: Sinus Rhythm Summary of EKG Findings: No acute changes Complex Multi-Symp Course/Dx Course Of Treatment: Patient is a 63 y/o female who presents to the ED c/o hyponatremia. For the past 4 months pt c/o burning in throat, nausea, dysuria, generalized weakness, fatigue, myalgia, CP, and weight loss. A physical exam was normal. An EKG was normal with a rate of 76 bpm. A CXR was negative. Bloodwork obtained. Patient is admitted to Dr. Miles. Final dx of hyponatremia. Patient is agreeable with this plan. - Diagnoses Differential Diagnoses/HQI/PQRI: Other - dizziness hyponatremia Provider Diagnoses: Hyponatremia - Physician Notifications Discussed Care Of Patient With: Carine Miles Time Discussed With Above Provider: 19:26 Instructed by Provider To: Admit As Inpatient Discharge - Sign-Out/Discharge Documenting (check all that apply): Patient Departure - Admit Patient Received Moderate/Deep Sedation with Procedure: No - Discharge Plan Condition: Stable Disposition: ADMITTED TO [facility] Referrals: Ravin Neri MD [Primary Care Provider] - - Billing Disposition and Condition Condition: STABLE Disposition: Admitted to [facility] - Attestation Statements Document Initiated by Humairaibe: Yes Documenting Scribe: Delfina Goodwin Provider For Whom Corrine is Documenting (Include Credential): Sadiq Da Silva MD Scribe Attestation: Delfina Lomeli scribed for Sadiq Da Silva MD on 12/31/18 at 1944. Scribe Documentation Reviewed: Yes Provider Attestation: The documentation as recorded by the Delfina cantrell accurately reflects the service I personally performed and the decisions made by Sadiq brown MD Status of Scribe Document: Viewed
[2018-12-31 19:12] LABS: Troponin I 0.02 ng/mL (<0.04)
[2018-12-31 19:19] LABS: Activated Partial Thrombo Time 33.9 seconds (26.0-36.3); INR 1.02 (0.82-1.09)
[2018-12-31 19:56] LABS: Magnesium 1.9 mg/dL (1.9-2.7)
[2018-12-31] MEDS ORDERED: Al Hydrox/Mg Hydrox/Simet LIQ* 30 ML UDC PO PRN (20:10)
[2018-12-31] MEDS ORDERED: Acetaminophen TAB* 325 MG PO PRN (20:14)
[2018-12-31 20:54] LABS: BUN/Creatinine Ratio 6.6 (8-20); EGFR African American 120.7 (>60); EGFR Non-African American 99.7 (>60); Potassium 4.3 mmol/L (3.5-5.0)
[2018-12-31] MEDS ORDERED: KCL 20 MEQ/100 ML IVPREMIX* 20 MEQ/100 ML BAG IV SCH (21:00)
--- NOTE | 2018-12-31 22:32 | HP ---
CC: Ravin Neri MD * HISTORY AND PHYSICAL: DATE OF ADMISSION: 12/31/18 TIME OF EVALUATION: 1999. PRIMARY CARE PHYSICIAN: Ravin Neri MD CHIEF COMPLAINT: Abnormal blood work. HISTORY OF PRESENT ILLNESS: This is a 63-year-old female with an unremarkable past medical history who went to urgent care earlier today with an array of symptoms, most predominantly worsening sore throat with burning with reflux, indigestion, burping, and fatigue. At urgent care, they diagnosed her with a viral URI and sent her for blood work, which her sodium came back at 113. She was contacted and recommended to go to emergency room for further workup. The patient was admitted back in June 2018, had a thorough workup including brain a MRI and MRA related to her hyponatremia, it was thought to be related to psychogenic polydipsia. At that time, she was drinking 10 to 12 bottles of water. 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 She is afraid to eat or drink very much at all due to the gas, heartburn, and indigestion. She no longer can drink coffee, which she states she loves. She has dropped 15 pounds. She states she has cut back significantly on her water intake. She thinks maybe she had 2 or 3 bottles of water today. She had an episode of vomiting today. Her states she does drink more water than he does. The history is rather vague. She has been nauseated and as mentioned vomited today. She has a lot of indigestion with burping. She had a CAT scan done on 12/27/18 for her symptoms of her chest, abdomen and pelvis. Getting the contrast, she states she had an episode of diarrhea, but no further diarrhea, no other changes in her bowel movement. Her CAT scan was unremarkable other than an incidental finding of an aneurysmal dilatation of the ascending thoracic aorta up to 4.2 cm transversely. The patient states she has been followed by Dr. Mike as an outpatient and is scheduled to get an EGD and colonoscopy on 01/07/19for further workup. She has had chronic low back pain that she sees a chiropractor for. She denies any fever. She has had a dry cough. No falls. She states she is more tired lately, but no weakness or focal weakness. As mentioned her bowel movement, she states she goes every day, no bright red blood per rectum, no melena and nausea as mentioned. In the emergency room, the patient had repeat labs, consistently showed low sodium, hypokalemia. She was given an 800 cc of normal saline bolus and referred to the hospitalist service for further evaluation. PAST MEDICAL HISTORY: 1. History of hyponatremia thought to be due to psychogenic polydipsia. 2. History of melanoma status post excision. 3. History of GERD. 4. History of TMJ. 5. History of hysterectomy. 6. History of breast implants. 7. History of chronic low back pain. MEDICATIONS: None. ALLERGIES: ADHESIVE, LATEX. FAMILY HISTORY: Father from lung cancer. Mother is alive and healthy. SOCIAL HISTORY: The patient lives at home with her who is her healthcare proxy. 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 No smoking history. Rare alcohol use. No illicit drug use. Code status, full code. REVIEW OF SYSTEMS: A 14-point review of systems as mentioned in the HPI, otherwise, negative. PHYSICAL EXAMINATION GENERAL: No acute distress. Resting comfortably with her at the bedside. VITAL SIGNS: Temp is 98.8, pulse 71, respiratory rate 15, oxygen saturation 98 % on room air, blood pressure 129/90. HEENT: Head normocephalic. Pupils are equal and reactive. Anicteric. Oropharynx: Mucous membranes moist. Mild posterior oropharynx erythema. NECK: Supple. No lymphadenopathy. RESPIRATORY: Clear to auscultation. No wheeze, rhonchi or rales. CARDIAC: Regular rate and rhythm. Soft systolic murmur heard throughout. ABDOMEN: Soft, nontender, nondistended. No rebound or guarding. EXTREMITIES: No clubbing, cyanosis or edema. NEUROLOGIC: Alert and oriented x3. No gross focal neurologic deficits. DIAGNOSTIC STUDIES/LAB DATA: Laboratory data: White count 5.5, hemoglobin 14 , hematocrit 41, platelets of 458, INR is 1.02. Sodium 114, potassium 2.8, chloride 77, bicarb 28, BUN 4, creatinine 0.61, glucose 98. Troponin 0.02. EKG shows normal sinus rhythm with QTc of 492. ASSESSMENT: This is a 63-year-old female with past medical history of psychogenic polydipsia who presents to the emergency room from urgent care for a sodium of 113 in the setting of decreased p.o., indigestion and weight loss. 1. Hyponatremia. Assessment: Concerning with patient's history of psychogenic polydipsia, though her story seems to have changed since her last admission with a decrease in appetite, decrease in water intake, does not seem to have any significant GI loss, though she had 1 day of diarrhea after getting the contrast on 12/27/18 and 1 episode of vomiting today. I suspect that this may be hypovolemic hyponatremia. I am waiting on further labs. This hyponatremia could be related to her upper GI symptoms. Plan: We will check urine and serum osmolarity, urine sodium, repeating her BMP now after she got an 800 cc normal saline bolus and will slowly increase her sodium levels and monitor this closely in the intensive care unit. She is asymptomatic at this time, so no indication for hypertonic saline. We will also check a magnesium level. 2. Indigestion, heartburn. Assessment: The patient with ongoing symptoms for the past few months with weight loss concerning for gastritis or other upper gastrointestinal pathology. She was scheduled to have an EGD and colonoscopy with Dr. Mike, next 01/07/19. I spoke with Dr. Mike this evening. He is going to scope her tomorrow. Plan: We will start her on Maalox and pantoprazole, keep her on a clear liquid diet and follow up with GI in the morning. 3. FEN: Awaiting repeat BMP and further studies to determine her volume status and we will determine her electrolyte repletion at that time. We will give her potassium IV in the setting of nausea and clear liquid diet. 4. DVT prophylaxis: The patient scores moderate risk. We will place her on heparin subcu t.i.d. 5. Code status: Full code. PATIENT TIME: Greater than 60 minutes was spent doing the history and physical , more than half the time spent in direct patient contact and critical care time. [id number]/[facility] #: [id number] BRITTANY
[2018-12-31] MEDS ORDERED: Melatonin 3 MG TAB PO PRN (23:05)
[2018-12-31] MEDS: Pantoprazole TAB * 40 MG TAB PO SCH (23:41)
[2018-12-31] MEDS: Heparin VIAL(*) 5000 UNITS/ML VIAL (FIVE THOUSAND) SUBCUT SCH (23:41)
[2019-01-01 00:48] LABS: Urine Appearance Clear; Urine Bilirubin Negative (Negative); Urine Blood Negative (Negative); Urine Color Straw; Urine Glucose Negative (Negative); Urine Ketones Trace (Negative); Urine Nitrite Negative (Negative); Urine Protein Negative (Negative); Urine Specific Gravity 1.004 (1.010-1.030); Urine Urobilinogen Negative (Negative)
[2019-01-01 01:01] LABS: BUN/Creatinine Ratio 7.9 (8-20); Calcium 8.7 mg/dL (8.6-10.3); EGFR African American 116.2 (>60); EGFR Non-African American 96.1 (>60); Potassium 2.9 mmol/L (3.5-5.0)
[2019-01-01] MEDS ORDERED: Potassium Chloride LIQUID* 20 MEQ PACKET PO ONE (02:00)
[2019-01-01] MEDS: Heparin VIAL(*) 5000 UNITS/ML VIAL (FIVE THOUSAND) SUBCUT SCH ×2 (06:17→13:38)
[2019-01-01 07:30] LABS: ABS Basophils 0 10^3/ul (0-0.2); ABS Eosinophils 0 10^3/ul (0-0.6); ABS Lymphocytes 1.3 10^3/ul (1.0-4.8); ABS Monocytes 0.3 10^3/ul (0-0.8); ABS Neutrophils 2.1 10^3/ul (1.5-7.7); ABS Nucleated RBC 0 10^3/ul; Eosinophil % 0.9 %; Hematocrit 37 % (33-41); Hemoglobin 12.7 g/dL (12.0-16.0); Lymphocyte % 33.7 %; Mean Corpuscular HGB Conc 34 g/dL (31-36); Mean Corpuscular Hemoglobin 28 pg (27-31); Mean Corpuscular Volume 82 fL (80-97); Nucleated Red Blood Cells % 0.1; Platelet Count 412 10^3/uL (150-450); Red Blood Count 4.55 10^6 /uL (3.70-4.87); Red Cell Distribution Width 16 % (10.5-15); White Blood Count 3.7 10^3/uL (3.5-10.8)
[2019-01-01 07:45] LABS: BUN/Creatinine Ratio 10.3 (8-20); Calcium 9.2 mg/dL (8.6-10.3); EGFR African American 90.9 (>60); EGFR Non-African American 75.1 (>60); Potassium 3.7 mmol/L (3.5-5.0)
[2019-01-01] MEDS: Pantoprazole TAB * 40 MG TAB PO SCH (09:20)
[2019-01-01] MEDS ORDERED: KCL 20 MEQ/100 ML IVPREMIX* 20 MEQ/100 ML BAG IV ONE (10:33)
[2019-01-01] MEDS ORDERED: fentaNYL* 50 MCG/ML 2 ML VIAL (100 MCG VIAL) ONE (15:01)
[2019-01-01] MEDS ORDERED: Midazolam* 1 MG/ML 10 ML VIAL (10 MG) ONE (15:01)
[2019-01-01 15:21] LABS: Calcium 8.5 mg/dL (8.6-10.3); EGFR African American 104.7 (>60); EGFR Non-African American 86.5 (>60); Potassium 3.6 mmol/L (3.5-5.0)
[2019-01-01 17:52] VITALS: BP 115/74
--- NOTE | 2019-01-02 02:53 | DS ---
CC: Dr. Ravin Neri; Dr. Mike * DISCHARGE SUMMARY: DATE OF ADMISSION: 12/31/18 DATE OF DISCHARGE: 01/01/19 PRIMARY CARE PHYSICIAN: Ravin Neri MD DISPOSITION: To home. CONDITION: Good. PRIMARY DIAGNOSES: 1. Hyponatremia. 2. Heartburn, possible functional dyspepsia. SECONDARY DIAGNOSES: 1. Chronic lower back pain. 2. Anxiety. 3. 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 CONSULTS: GI, Dr. Mike. PROCEDURES: EGD on 01/01/19, pending procedure note. MEDICATIONS ON DISCHARGE: None. HISTORY OF PRESENT ILLNESS: Ms. Mary is a 63-year-old woman with a past medical history of chronic heartburn, possibly functional dyspepsia, anxiety who presented to urgent care with multiple symptoms, most predominantly worsening sore throat, burning, indigestion, burping, and fatigue. While there , they diagnosed her with a viral URI and sent her for a blood work, which returned a sodium of 113, so she was contacted and recommended to come to the emergency room. 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 Over the last 4 months, she has dropped 15 pounds and she has also cut back significantly on her water intake. She did experience some episode of vomiting on day of presentation. She notes that she had a CT scan done on 12/27/18 for her symptoms and she was given contrast, and since then, she has also experienced a few episodes of diarrhea. She notes that the CT scan was unremarkable other than finding of an aneurysmal dilatation of the ascending aorta 4.2 cm. She was scheduled to get an EGD next week from Dr. Mike. Of note, in June 2018, she was admitted for hyponatremia with extensive workup negative, thought to be likely to psychogenic polydipsia. At that time, she was drinking 10 to 12 bottles of water daily. HOSPITAL COURSE: In the emergency room, the patient was noted to have a sodium of 114. She was not given IV fluids. She also had a decreased potassium to 2.8 which required a few rounds of repletion. Dr. Mike was notified who planned on doing EGD by next morning and recommended keeping the patient on clear liquid diet until procedure. On afternoon of discharge, the patient underwent procedure, which was reportedly without abnormal findings and care team felt comfortable having the patient return home if she was able to tolerate p.o. given her improvement and stability of her sodium which increased to 125 on afternoon of discharge, with a repeat staying at 125. The patient was very anxious throughout admission, and given this with normal EGD findings, there is concern for functional gut disorder such as functional dyspepsia versus IBS. The patient with reluctance to take medication, but asked to consider something such as amitriptyline to treat symptoms. We will defer to outpatient providers to follow up this medication. On day of discharge, the patient denied thirst, headache, confusion, or weakness. She reports feeling stressed, but otherwise 10-point review of systems is negative. PHYSICAL EXAMINATION: On physical exam, she is afebrile, heart rate 50, blood pressure 115/74, respiratory rate 12, oxygen saturation 98% on room air. In general, she is a well-appearing woman, anxious, difficult to interrupt and tangential, which appears her baseline. Neck: No JVD. Respiratory: Clear to auscultation bilaterally. Heart: Regular rate and rhythm. No murmurs, gallops , or rubs. Abdomen: Soft, nontender, nondistended. Extremities: Warm and well perfused without edema. Neurologic: A and O x3 without focal motor deficits. PERTINENT STUDIES AND LABS: Chest x-ray with stigmata of chronic lung disease, no acute pulmonary findings. DISCHARGE PLAN: The patient is to follow up very closely with her primary care physician with a check of her sodium and potassium within 2 to 3 days of discharge. She is also to follow up with Dr. Mike of GI for ongoing care of her chronic abdominal pain and belching. Extensive conversation was had with the patient regarding importance of close followup given her severe electrolyte abnormalities. The patient was adamant about leaving hospital today and states that she is able to have very close followup with her providers. It was recommended that she maintain a normal level of hydration and seek medical care , she is unable to do so. She can also consider hydrating with nonsugary sports drinks or using other types of electrolyte tabs when she is drinking free water. She is to consider medication therapy or psychotherapy for her possible gut disorder. TIME SPENT: Approximately 60 minutes spent on discharge of this patient, more than half of which was spent with care coordination at bedside for interview and exam. [id number]/[facility] #: [id number] BRITTANY
--- NOTE | 2019-01-02 03:42 | PRO ---
DATE: 01/01/19 - ROOM #[id number] REFERRING PHYSICIAN: Ravin Neri* PROCEDURE: Upper gastrointestinal endoscopy and biopsy 3rd portion of duodenum , greater curvature, subtle fundic gastropathic patches and CLOtest. INDICATION: This 63-year-old woman complains of anorexia and also crampy abdominal pain. She has been losing weight. She has been drinking copious amounts of water and on presentation yesterday sodium was 113. There had been admission with hyponatremia back in June. Upper endoscopy September 2014 was unremarkable. Currently is an outpatient. She is not on any medications per the emergency room history and physical from Dr. Miles. Informed consent was obtained. ENDOSCOPIST: Dr. Mike. MEDICATIONS: Midazolam 4, fentanyl 50. FINDINGS: She is a slender, anxious, middle-aged woman in no distress. Her skin is normal. She is very slender. Her abdomen is flat, symmetric, firm without focal finding. Perianal inspection and rectum shows pasty, brownish walter stool, submitted for Hemoccult. She was positioned left side down and moderate sedation induced with sequential doses of medication. She tolerated the exam very well. EGD: Larynx - no gross disease. Esophagus - easily entered and the mucosa is normal in the upper, mid, and lower esophagus. EG junction is at 39, normal. There are no erosions and no Jimenez's change. Stomach - generally normal contours and normal rugal folds. There was no obvious gastritis or erythema or bleeding. There are subtle areas of different texture feeling like hyperplastic patches, very superficial and not deforming the underlying rugal pattern. One was removed with a non-electrified snare and suctioned. Other areas were biopsied to get a secure sample of this subtle lesion. It is not likely contributing to clinical picture. The antrum appeared normal. Duodendum - the pylorus, bulb, and 2nd through 4th portions appear normal. Two biopsies were taken of 3rd portion of the duodenum. IMPRESSION: 1. Generally normal upper endoscopy. 2. Gastropathic appearance locally in the fundus - biopsies pending. 3. Weight loss - no cause seen and biopsies pending from 3rd portion of duodenum. 4. Hyponatremia - no finding possibly related to this and further evaluation pending. Urinary electrolytes are pending. 5. Abdominal pain - no cause found. Addendum: Clotest and stool hemoccult negative; FGP, duodenum 3rd portion normal [id number]/[facility] #: [id number] MTDD
== END 2019-01-01 19:20 | disposition home or self-care (01) | DRG 254 ==
LOC: ED 18:18 → MED 20:14
PROVIDERS: ADMIT Pediatrics; ATTEND Internal Medicine
PROC: 0DB98ZX Excision of Duodenum, Via Natural or Artificial Opening Endoscopic, Diagnostic (ICD-10-PCS; principal; 2019-01-01)
PROC: 0DB68ZX Excision of Stomach, Via Natural or Artificial Opening Endoscopic, Diagnostic (ICD-10-PCS; 2019-01-01)
DX: K30 Functional dyspepsia (principal); E87.1 Hypo-osmolality and hyponatremia; K21.9 Gastro-esophageal reflux disease without esophagitis; K58.9 Irritable bowel syndrome, unspecified; M15.9 Polyosteoarthritis, unspecified; G43.909 Migraine, unspecified, not intractable, without status migrainosus; G89.29 Other chronic pain; R63.4 Abnormal weight loss; F41.9 Anxiety disorder, unspecified; I77.819 Aortic ectasia, unspecified site; E87.6 Hypokalemia; M54.9 Dorsalgia, unspecified; Z90.710 Acquired absence of both cervix and uterus; Z90.721 Acquired absence of ovaries, unilateral; Z88.8 Allergy status to other drugs, medicaments and biological substances; Z85.820 Personal history of malignant melanoma of skin; Z91.040 Latex allergy status; Z80.1 Family history of malignant neoplasm of trachea, bronchus and lung; Z68.20 Body mass index [BMI] 20.0-20.9, adult
CPT/HCPCS: 36415; 71046; 80048; 80053; 81003; 82272; 83735; 83930; 83935; 84300; 84484; 85025; 85610; 85730; 87077; 88305; 88342; 93005; 99156; 99157; 99284; A9270-GY; J1644; J2250; J3010; J3480

== ENCOUNTER 2019-01-03 07:21 | Observation (INO) | payer BC ==
[2019-01-03] MEDS ORDERED: Nitroglycerin TAB 0.4 MG* 0.4 MG TAB SL PRN (07:59)
[2019-01-03] MEDS ORDERED: Aspirin 81 mg CHEW TAB* 81 MG TAB.CHEW PO ONE (07:59)
[2019-01-03] MEDS ORDERED: Nitroglycerin TAB 0.4 MG* 0.4 MG TAB ONE (08:07)
--- NOTE | 2019-01-03 08:07 | ED ---
HPI Chest Pain - HPI Summary HPI Summary: Pt is a 63 y/o F presenting to the ED with a chief complaint of chest pain. Per triage note, the states she has hx of AMS due to hyponatremia with associated HTN, which he thinks may be happening again. The pts states she had a CT scan last week, they recommended she drink lots of fluids, and she did, and the reports around that time is when he started noticing her be out of it. She has been hesitating before answering questions and is restless. The pt states she has chest pain located in the middle of her chest described as heaviness/pressure with intermittent diffuse sharp pains. She reports constipation, increased fluid intake, as well as increased levels of stress from her son being handicapped. She denies abd pain, N/V, dysuria, burning with urination, and black or bloody stools. She denies hx of CT or chronic HTN. - History of Current Complaint Chief Complaint: EDChestPainROMI Time Seen by Provider: 01/03/19 07:36 Hx Obtained From: Patient Onset/Duration: Started Days Ago, Still Present Timing: Constant, Lasting Days Initial Severity: Moderate Current Severity: Severe Pain Intensity: 8 Pain Scale Used: 0-10 Numeric Chest Pain Location: Mid Sternal Chest Pain Radiates: No Character: Pressure/Squeezing, Sharp/Stabbing - "needles", Tightness Aggravating Factor(s): Nothing Alleviating Factor(s): Nothing Associated Signs and Symptoms: Positive: Chest Pain, Recent Stress, Other: - constipation. Negative: Negative - black/bloody stools, burning with urination , dysuria., Nausea, Abdominal Pain, Vomiting - Additional Pertinent History Primary Care Physician: [id number] - Allergy/Home Medications Allergies/Adverse Reactions: Allergies Allergy/AdvReac Type Severity Reaction Status Date / Time adhesive Allergy Unknown Verified 01/03/19 07:29 Reaction Details latex Allergy skin Verified 01/03/19 07:29 irritation PMH/Surg Hx/FS Hx/Imm Hx Previously Healthy: Yes Endocrine/Hematology History: Denies: Hx Diabetes, Hx Thyroid Disease Cardiovascular History: Denies: Hx Hypertension, Hx Myocardial Infarction, Hx Pacemaker/ICD Respiratory History: Denies: Hx Asthma, Hx Chronic Obstructive Pulmonary Disease (COPD) GI History: Reports: Hx Gastroesophageal Reflux Disease - OCCASSIONAL IN PAST, HAS MEDS, DOESN'T TAKE, Hx Irritable Bowel - Hx OF, NO CURRENT Sx or MEDS Denies: Hx Ulcer History: Denies: Hx Dialysis, Hx Renal Disease Musculoskeletal History: Reports: Hx Arthritis - FEET, LOW BACK, NECK Sensory History: Denies: Hx Contacts or Glasses, Hx Hearing Aid Opthamlomology History: Denies: Hx Contacts or Glasses Neurological History: Reports: Hx Headaches Comment Only: Hx Migraine - Hx OF, NONE IN 10 YEARS Psychiatric History: Denies: Hx Panic Disorder - Cancer History Cancer Type, Location and Year: Melanoma- in bwn toes Hx Chemotherapy: No Hx Radiation Therapy: No - Surgical History Surgery Procedure, Year, and Place: in 40's had oophorectomy and hysterectomy. BREAST IMPLANTS - SALINE. BIOPSY - NECK, AXILARY, - BENIGN Hx Anesthesia Reactions: Yes - AFTER HYSTERECTOMY N/V Infectious Disease History: No Infectious Disease History: Denies: Hx Clostridium Difficile, Hx Hepatitis, Hx Human Immunodeficiency Virus (HIV), Traveled Outside the [place] in Last 30 Days - Family History Known Family History: Positive: Cardiac Disease, Hypertension, Diabetes, Other - No breast CA - Social History Alcohol Use: Occasionally Alcohol Amount: MAYBE 1-2 DRINKS/MONTH Hx Substance Use: No Substance Use Type: Reports: None Hx Tobacco Use: No Smoking Status (MU): Never Smoked Tobacco Have You Smoked in the Last Year: No Review of Systems Positive: Other - increase in fluid intake Positive: Chest Pain Gastrointestinal: Other - constipation Negative: Abdominal Pain, Vomiting, Nausea, Other - black or bloody stools Negative: burning, dysuria Positive: Other - recent stress d/t son All Other Systems Reviewed And Are Negative: Yes Physical Exam - Summary Physical Exam Summary: Constitutional: Well-developed, Well-nourished, Alert. (-) Distressed. BP elevated, pulse is nml. Skin: Warm, Dry HENT: Normocephalic; Atraumatic Eyes: Conjunctiva normal Neck: Musculoskeletal ROM normal neck. (-) JVD, (-) Stridor, (-) Tracheal deviation Cardio: Rhythm regular, rate normal, Heart sounds normal; Intact distal pulses; The pedal pulses are 2+ and symmetric. Radial pulses are 2+ and symmetric. Pulmonary/Chest wall: Effort normal. (-) Respiratory distress, (-) Wheezes, (-) Rales Abd: Soft, (-) tenderness, (-) Distension, (-) Guarding, (-) Rebound Musculoskeletal: (-) Edema Neuro: Alert, Oriented x3, answering questions appropriately with some delay c/ w husbands story Psych: Mood and affect Normal Triage Information Reviewed: Yes Vital Signs On Initial Exam: Initial Vitals Temp Pulse Resp BP Pulse Ox 97.4 F 88 14 183/115 100 01/03/19 07:23 01/03/19 07:23 01/03/19 07:23 01/03/19 07:23 01/03/19 07:23 Vital Signs Reviewed: Yes Diagnostics - Vital Signs Vital Signs Temp Pulse Resp BP Pulse Ox 01/03/19 07:23 97.4 F 88 14 183/115 100 - Laboratory Result Diagrams: 01/03/19 08:16 01/03/19 08:16 Lab Statement: Any lab studies that have been ordered have been reviewed, and results considered in the medical decision making process. - Radiology CXR Radiology Interpretation Completed By: Radiologist Summary of Radiographic Findings: Hyperinflation. No active cardiopulmonary disease. ED physician has reviewed this report. - EKG 0803 Cardiac Rate: NL EKG Rhythm: Sinus Rhythm ST Segment: Normal Ectopy: None EKG Comparison: No Significant Change - from 01/01/19 Summary of EKG Findings: An EKG at 0803 shows NSR 72bpm, nml axis, nml intervals , no STEMI, and no acute changes from 01/01/19. Chest Pain Course/Dx - Course Course Of Treatment: Pt is a 63 y/o F presenting to the ED with a chief complaint of chest pain. The is concerned for an AMS episode which she has had in the past due to hyponatremia. The pt states she has chest pain located in the middle of her chest described as heaviness/pressure with intermittent diffuse sharp pains. She reports constipation, increased fluid intake, as well as increased levels of stress from her son being handicapped. She denies abd pain, N/V, dysuria, burning with urination, and black or bloody stools. An EKG at 0803 shows NSR 72bpm, nml axis, nml intervals, no STEMI, and no acute changes from 01/01/19. Her sodium level is 131, which seems to be the pt s baseline, and her potassium is 3.1. Her lactic acid is WNL at 0.8, and troponin is WNL at 0.01. There are trace ketones present in her urine probably d /t not eating enough. All other abnml lab work is not pertinent to the pts present illness. CXR shows hyperinflation with no chronic obstructive pulmonary disease. Dr. Talbot will be accepting the pt for admission. Her dx will include hyponatremia and altered mental status. - Diagnoses Provider Diagnoses: Hyponatremia, Altered mental status Discharge - Sign-Out/Discharge Documenting (check all that apply): Patient Departure - Discharge Plan Condition: Stable Disposition: ADMITTED TO [facility] - Billing Disposition and Condition Condition: STABLE Disposition: Admitted to [facility] - Attestation Statements Document Initiated by Humairaibe: Yes Documenting Scribe: Carine Ly Provider For Whom Corrine is Documenting (Include Credential): Jorge L Jones MD. Scribe Attestation: Carine Lomeli, scribed for Jorge L Jones MD. on 01/03/19 at 1651. Scribe Documentation Reviewed: Yes Provider Attestation: The documentation as recorded by the humairaibeCarine accurately reflects the service I personally performed and the decisions made by , Jorge L Jones MD. Status of Scribe Document: Viewed Consult Consult: 1007 - Spoke with Dr. Talbot who will be accepting the pt for admission.
[2019-01-03 08:32] LABS: ABS Basophils 0 10^3/ul (0-0.2); ABS Eosinophils 0 10^3/ul (0-0.6); ABS Lymphocytes 0.7 10^3/ul (1.0-4.8); ABS Monocytes 0.3 10^3/ul (0-0.8); ABS Neutrophils 4.1 10^3/ul (1.5-7.7); ABS Nucleated RBC 0 10^3/ul; Eosinophil % 0.3 %; Hematocrit 39 % (33-41); Lymphocyte % 13.9 %; Mean Corpuscular HGB Conc 33 g/dL (31-36); Mean Corpuscular Hemoglobin 27 pg (27-31); Mean Corpuscular Volume 82 fL (80-97); Mean Platelet Volume 6.8 fL (7.4-10.4); Nucleated Red Blood Cells % 0; Platelet Count 418 10^3/uL (150-450); Red Blood Count 4.78 10^6 /uL (3.70-4.87); Red Cell Distribution Width 16 % (10.5-15); White Blood Count 5.3 10^3/uL (3.5-10.8)
[2019-01-03 08:43] LABS: Troponin I 0.01 ng/mL (<0.04)
[2019-01-03 08:44] LABS: Albumin 4.2 g/dL (3.2-5.2); Albumin/Globulin Ratio 1.4 (1-3); Calcium 9.8 mg/dL (8.6-10.3); EGFR African American 130.5 (>60); EGFR Non-African American 107.8 (>60); Globulin 3.1 g/dL (2-4); Potassium 3.1 mmol/L (3.5-5.0); Total Bilirubin 0.4 mg/dL (0.2-1.0); Total Protein 7.3 g/dL (6.4-8.9)
[2019-01-03] MEDS ORDERED: Potassium Chlor TAB* 20 MEQ TAB.ER PO ONE (09:05)
[2019-01-03 09:09] LABS: Urine Appearance Cloudy; Urine Bilirubin Negative (Negative); Urine Blood Negative (Negative); Urine Color Yellow; Urine Glucose Negative (Negative); Urine Ketones Trace (Negative); Urine Nitrite Negative (Negative); Urine Protein Negative (Negative); Urine Specific Gravity 1.008 (1.010-1.030); Urine Urobilinogen Negative (Negative)
[2019-01-03 09:10] LABS: T4, Total 8.41 mcg/dL (6.09-12.23)
[2019-01-03 09:14] LABS: TSH (Thyroid Stimulating Horm) 2.51 mcIU/mL (0.34-5.60)
[2019-01-03 09:37] LABS: Magnesium 1.9 mg/dL (1.9-2.7)
[2019-01-03] MEDS ORDERED: Atorvastatin* 40 MG TAB PO ONE (11:44)
[2019-01-03] MEDS ORDERED: hydrALAZINE IV* 20 MG/ML VIAL IV SLOW PU PRN (11:46)
[2019-01-03 12:15] LABS: C Reactive Protein 6.32 mg/L (<8.01); Uric Acid 2.4 mg/dL (2.3-6.6)
[2019-01-03 12:37] LABS: Carcinoembryonic Antigen 0.6 ng/mL (0.1-5.0)
[2019-01-03] MEDS: busPIRone TAB* 10 MG PO SCH ×2 (14:18→20:08)
[2019-01-03] MEDS: Metoprolol Tartrate TAB* 25 MG PO SCH ×3 (14:18→23:36)
[2019-01-03] MEDS: Enoxaparin(*) 40 MG/0.4 ML SYR SUBCUT SCH (14:19)
[2019-01-03] MEDS: Simethicone TAB* 80 MG TAB.CHEW PO SCH ×2 (14:19→18:12)
[2019-01-03 14:46] LABS: Erythrocyte Sed Rate 16 mm/Hr (0-29)
[2019-01-03 14:53] LABS: HDL Cholesterol 75.5 mg/dL
--- NOTE | 2019-01-03 16:04 | HP ---
HISTORY AND PHYSICAL: DATE OF ADMISSION: 01/03/19 ADMITTING PROVIDER: Alessandro Talbot MD PRIMARY CARE PHYSICIAN: Ravin Neri MD* CHIEF COMPLAINT: Chest pressure, intermittent confusion, intermittent abdominal cramping, weight loss. HISTORY OF PRESENT ILLNESS: Tracy Mary is a 63-year-old female with past medical history of melanoma, status post resection; GERD; and 2 episodes of hyponatremia, first thought to be psychogenic polydipsia, second hypovolemia, last episode just 3 days ago, admitted from 12/31/18 to 01/01/19, when her sodium was at low 114 and after 800 cc of normal saline, improved to 120 to 122 and then on the day of discharge 125. She was insisting on leaving the hospital at that time. She has had somewhat chronic complaints of intermittent abdominal cramps and she intentionally went on a diet at the beginning of the year but then stopped that intentional weight loss but continued to seem to be losing weight and states she has lost about 15 pounds in the last 3 months. She did have some burning pains with swallowing, which did seem to resolve after her sodium was corrected a couple of days ago. She has been following up with Dr. Mike and also her women's health doctor. It sounds like they have trialed nystatin and some oral hormonal supplements but the hormones made her "sicker". At last admission, she had an EGD which was not concerning and she actually has a colonoscopy scheduled for 01/07/19, routine 5-year followup for her polyps. She denies any current melena or hematochezia. Does have a history of hemorrhoids. Last night, she developed some intermittent chest discomfort that alternates between a pressure-like pain and sensation like a neuropathy twittering. This again returned in the morning, rated at 7 to 8/10. She called the provider, who told her to seek medical attention at the emergency room. She got 324 mg of aspirin in the field. She denies any chest pressure at the moment. Her initial EKG is without ST elevations or depressions. She had a T-wave inversion in . Her initial troponins have been negative. Sodium was improved to 131 and she was referred to hospitalist service for the chest pressure/ACS rule out and continued concern for her intermittent confusion. Example they give of this was yesterday she would walk around in circles, almost in the day and forgetful about what she was trying to do. She sometimes has staring episodes where she does not seem to necessarily respond. These are not completely new, but do have increased in frequency over the last few months. Denies any history of seizure history. Her thinks like "she is not with the program" and was encouraged in and out. She does admit that she is in a lot of stress, has some poor sleep. Stressors are largely related to her son having progressive multiple sclerosis and trying to arrange care for him. She also follows with Dr. Srinivasan for history of melanoma, Dr. Cheung for her Dermatology. She relates that she has had a lot of fatigue. She was tested for Lyme, that reportedly was negative but did get treated with a medication initially. Also, thinks she was on an antimalarial at some point. There were episodes of her shaking and crying and cannot say why. She does plan to follow up with a counselor. She does have some resistance to starting any medications. She has been recording her blood pressures at home and avoiding all salt, direct customer service representative readings have been as high as the 160s/90s. She does sometimes still admit to drinking fluid in the middle of the night to flush out her body. PAST MEDICAL HISTORY: 1. GERD. 2. Hyponatremia, 2 episodes, first psychogenic polydipsia, second hypovolemia. 3. Melanoma, status post excision. 4. Hysterectomy. 5. Breast implants. 6. Chronic low back pain. 7. Some concern for recent hypertension. 8. TMJ. MEDICATIONS: None. ALLERGIES: ADHESIVES, LATEX. FAMILY HISTORY: Father of lung cancer at age 70. Mother is alive but has a history of heart disease. She has 8 brothers and sisters, some of them have heart disease, some have progressive MS. SOCIAL HISTORY: She is a never smoker. Very rare alcohol use. No drug use. 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 She lives with her , Lv Hope. She desires to be a full code. REVIEW OF SYSTEMS: Complete 14-point review of systems was negative except as per HPI. She denies any vision changes, headache, current abdominal pain, nausea, vomiting, diarrhea or constipation. PHYSICAL EXAMINATION GENERAL APPEARANCE: No acute distress. VITAL SIGNS: Temperature 97.4, heart rate 87, respiratory rate 15 to 21, satting 99 to 100% on room air, blood pressure initially 171/112, currently 189/ 111. HEENT: Normocephalic, atraumatic. Pupils are equally round and reactive to light. Extraocular motions intact. No scleral icterus. LUNGS: Clear to auscultation bilaterally with no wheezing, rales, or rhonchi. CARDIOVASCULAR: Regular rate and rhythm. No murmurs, rubs, or gallops. ABDOMEN: Soft, nontender, nondistended. No rebound or guarding. No Perry's sign. EXTREMITIES: Warm and well perfused. No peripheral edema. SKIN: No lesions. No rashes. NEUROLOGIC: Cranial nerves II through XII intact. Jet Operator 5/5, biceps, triceps, deltoid 5/5. Hip flexion and extension, dorsiflexion, plantarflexion all 5/5 and sensation intact. [id number] intact. Rapid hand motions are intact. Gait not tested. DIAGNOSTIC STUDIES/LABORATORY DATA: White count 5.3, hemoglobin 13.0, hematocrit 39, platelets 418. Sodium 131, potassium 3.1, chloride 92, BUN 4, anion gap 12, glucose 113, lactic acid 0.8, calcium 9.8, magnesium 1.9. Troponins 0.01 and 0.01. BNP 43. TSH 2.51, lipase 11, T4 of 8.41. Urinalysis: Specific gravity 1.008 (low), ketones trace. Imaging: Chest x-ray: No acute process. EKG demonstrated normal sinus rhythm and T-wave inversion in V1, no ST elevations or depressions, QTc is 455, normal intervals. ASSESSMENT AND PLAN: Tracy Mary is a 63-year-old female with past medical history of gastroesophageal reflux disease, recent hyponatremia episode, subacute abdominal pains, weight loss, presenting with chest pressure alternating with a fluttering, twittering sensation in her chest. She has been admitted for acute coronary syndrome rule out. Blood pressure was elevated at 189/111. She does have intermittent confusion, cannot rule out some mild hypertensive encephalopathy. Sodiums are improving, 131. We will add on the ESR and CRP. The CRP was elevated in October. It looks like she has had some autoimmune workup in October with anti-SS-A, SS-B, DAMION, antinuclear antibody, CCP, rheumatoid factor, HLA-B27. Her Lyme tests were negative. B12 was also within normal limits, 476 in January 2018 but given her description of the paresthesias, we will add B12. She is also having some intermittent confusion. I will add on the a.m. cortisol and serum uric acid to further evaluate her hyponatremia, though that has improved notably. I told her to liberalize her salt intake. For her chest pain, I am adding metoprolol 25 p.o. q.6 hours. Giving her atorvastatin 40, add on lipid panel, put her on telemetry, check third troponin. She is a full code. For her abdominal pain, we are going to trial simethicone and I think it is very important that she possibly get a colonoscopy, especially given her weight loss and history of polyps. She is currently chest pain-free. I do not believe she needs anticoagulation. She can have a heart-healthy diet. [id number]/[facility] #: [id number] MTDD
[2019-01-03] MEDS ORDERED: traZODone TAB* 50 MG TAB PO PRN (18:16)
[2019-01-03] MEDS: Magnesium Sulfate 1 GM IV* 1 GM/100 ML BAG IV ONE ×2 (20:07→20:19)
[2019-01-04] MEDS: Metoprolol Tartrate TAB* 25 MG PO SCH ×4 (06:57→23:44)
[2019-01-04] MEDS: busPIRone TAB* 10 MG PO SCH ×2 (08:11→22:06)
[2019-01-04] MEDS: Aspirin 81 mg CHEW TAB* 81 MG TAB.CHEW PO SCH (08:11)
[2019-01-04] MEDS: Simethicone TAB* 80 MG TAB.CHEW PO SCH ×3 (08:11→18:07)
[2019-01-04 08:37] LABS: Calcium 9.8 mg/dL (8.6-10.3); EGFR African American 90.9 (>60); EGFR Non-African American 75.1 (>60); Potassium 3.7 mmol/L (3.5-5.0)
[2019-01-04 08:39] LABS: Magnesium 1.7 mg/dL (1.9-2.7)
[2019-01-04] MEDS ORDERED: Magnesium Sulfate 2 GM IV* 2 GM/50 ML BAG IVPB ONE (09:21)
[2019-01-04 10:21] LABS: Urine Potassium Concentration 30.8 mmol/L
[2019-01-04] MEDS ORDERED: Lidocaine 2% VISCOUS* 15 ML UDC PO ONE (11:17)
[2019-01-04] MEDS: Enoxaparin(*) 40 MG/0.4 ML SYR SUBCUT SCH (12:26)
[2019-01-04] MEDS: NS 0.9% 1000 ML** 1,000 ML IV SCH (14:12)
--- NOTE | 2019-01-04 15:48 | EEG ---
ELECTROENCEPHALOGRAM REPORT: DATE OF STUDY: 01/04/19 REFERRING PHYSICIAN: Alessandro Talbot MD. LOCATION: She is an inpatient in room 451. CLINICAL PROBLEM: Episodes of confusion, also intestinal problems and chest pressure. MEDICATIONS: Include: 1. Trazodone. 2. Hydralazine. 3. Buspirone. 4. Lovenox. 5. Metoprolol. REPORT: This 19-channel EEG is remarkable for background rhythms consisting of an occipital alpha rh ythm at about 9 cycles per second, which is symmetric. Low- voltage beta rhythms were seen bifrontal ly. Patient is clinically awake. Activation procedure is not attempted. The patient drowses with at tenuation of background alpha rhythms, but does not sleep. There are no clinical events. There are no focal, lateralized, or epileptiform abnormalities. CLINICAL IMPRESSION: Normal awake EEG. [id number]/[facility] #: [id number]
[2019-01-04] MEDS: Atorvastatin* 40 MG TAB PO SCH (18:07)
[2019-01-04] MEDS ORDERED: Pantoprazole TAB * 40 MG TAB PO ONE (18:17)
--- NOTE | 2019-01-04 18:19 | PN ---
Subjective Date of Service: 01/04/19 Interval History: Very poor sleep, wound up, was eventually given trazodone at 430am, slept a few hours. Very delerious with paranoid dreams/fantasies about being commited to a psychiatric facility by her . Na down to 124 from 131. Minimaly urine output. Drank 1 1/2 gatorade bottles yesteday. Poor appetite at dinner, better at breakfast but return of the burning sensation in throat(worse with belching) . viscous lidocaine helped. No return of chest pain. Tingling in b/l finger tips and diffuse "hot spots" around body. Hypertensive overnight 3am to 190/100 and got hydralazine prn. CTH negative last night. Objective Active Medications: Aspirin (Aspirin 81 Mg Chew Tab*) 81 mg PO DAILY [facility] Last Admin: 01/04/19 08:11 Dose: 81 mg Atorvastatin Calcium (Lipitor*) 40 mg PO 1700 [facility] Last Admin: 01/04/19 18:07 Dose: 40 mg Buspirone HCl (Buspar Tab*) 10 mg PO BID [facility] Last Admin: 01/04/19 08:11 Dose: 10 mg Enoxaparin Sodium (Lovenox(*)) 40 mg SUBCUT Q24H [facility] Last Admin: 01/04/19 12:26 Dose: 40 mg Hydralazine HCl (Apresoline Iv*) 10 mg IV SLOW PU Q2H PRN PRN Reason: SYSTOLIC BP GREATER THAN: Last Admin: 01/04/19 03:21 Dose: 10 mg Sodium Chloride (Ns 0.9% 1000 Ml) 1,000 mls @ 75 mls/hr IV PER RATE [facility] Last Admin: 01/04/19 14:12 Dose: 75 mls/hr Metoprolol Tartrate (Lopressor Tab*) 25 mg PO Q6H [facility] Last Admin: 01/04/19 18:07 Dose: 25 mg Nitroglycerin (Nitroglycerin Tab 0.4 Mg*) 0.4 mg SL Q5M PRN PRN Reason: ANGINA Simethicone (Mylicon Tab*) 80 mg PO PC [facility] Last Admin: 01/04/19 18:07 Dose: 80 mg Vital Signs - 8 hr 01/04/19 01/04/19 01/04/19 11:47 16:01 17:31 Temperature 98.2 F 98.7 F 98.3 F Pulse Rate 75 73 78 Respiratory 16 16 18 Rate Blood Pressure 103/65 103/67 108/61 (mmHg) O2 Sat by Pulse 99 100 98 Oximetry 01/04/19 18:06 Temperature Pulse Rate Respiratory Rate Blood Pressure 110/75 (mmHg) O2 Sat by Pulse Oximetry Oxygen Devices in Use Now: None Appearance: NAD. Eyes: No Scleral Icterus Ears/Nose/Mouth/Throat: NL Teeth, Lips, Gums Neck: NL Appearance and Movements; NL JVP Respiratory: Symmetrical Chest Expansion and Respiratory Effort, Clear to Auscultation Cardiovascular: NL Sounds; No Murmurs; No JVD, RRR Abdominal: NL Sounds; No Tenderness; No Distention, No Hepatosplenomegaly Extremities: No Edema Skin: No Rash or Ulcers Neurological: Alert and Oriented x 3, NL Sensation, NL Muscle Strength and Tone Nutrition: Taking PO's - Nutrition: Malnutrition Diagnosis/Plan Malnutrition Assessment by Registered Dietitian: Malnutrition Assessment Clinical Characteristics Acute,Moderate Malnutrition Assessment: - 8.0% wt loss x past " couple months" (per pt) Criteria - Mild temporal muscle wasting Malnutrition Assessment: Pt amenable to receiving Ensure Enlive w/ lunch Interventions today. She is aware to ask for this to be scheduled if she enjoys it. Ensure Enlive: 350 kcals, 20 grams protein. Malnutrition Assessment: Goals 1. Adequate PO intake to promote repletion of lean body mass, maintain hydration, and prevent additional wt loss Result Diagrams: 01/03/19 08:16 01/04/19 08:08 Additional Lab and Data: Laboratory Results - last 24 hr 01/04/19 01/04/19 01/04/19 08:06 08:08 08:08 Sodium 124 L Potassium 3.7 Chloride 88 L Carbon Dioxide 27 Anion Gap 9 BUN 7 Creatinine 0.78 Est GFR ( Amer) 90.9 Est GFR (Non-Af Amer) 75.1 BUN/Creatinine Ratio 9.0 Glucose 152 H Calcium 9.8 Magnesium 1.7 L Cortisol 31.03 U Sodium Concentration Urine Potassium Ur Chloride Concentrat Syphilis IgG Antibody Negative HIV 1&2 Antibody Nonreactive 01/04/19 09:00 Sodium Potassium Chloride Carbon Dioxide Anion Gap BUN Creatinine Est GFR ( Amer) Est GFR (Non-Af Amer) BUN/Creatinine Ratio Glucose Calcium Magnesium Cortisol U Sodium Concentration 121 Urine Potassium 30.8 Ur Chloride Concentrat 125 Syphilis IgG Antibody HIV 1&2 Antibody Assess/Plan/Problems-Billing Assessment: 63 yo female PMH melanoma, 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 Presenting with intermittent confusion, disorientation, staring episodes. Weight loss, throat burning. Chest pain ACS ruled out. Na fell again to 124 from 131. Insomnia, a lot of stress in life. - Patient Problems (1) Hyponatremia Current Visit: No Status: Acute Code(s): E87.1 - HYPO-OSMOLALITY AND HYPONATREMIA SNOMED Code(s): 36010596 Comment: -Fell from 131 back down to 124 (had been discharged at 125 two days prior to admission). Had not put out much urine. F/u Urine osm, Urine Na, Urine BLOWER INSTALLER, Serum osm, serum uric acid. Start Ns 75cc/hr, repeat BMP at 1800. strict io. suspect component of low solute and (she avoids almost all salt in diet). TSH wnl, cortisol not low. (2) Chest pressure Current Visit: Yes Status: Acute Code(s): R07.89 - OTHER CHEST PAIN SNOMED Code(s): 775169602 Comment: ACS ruled out. negative troponins and EKGs (3) Encephalopathy acute Current Visit: Yes Status: Acute Code(s): G93.40 - ENCEPHALOPATHY, UNSPECIFIED SNOMED Code(s): 46274084 Comment: Likely most associated with her hyponatremia and insomnia. CTH no acute process. EEG no epileptiform activity. RPR negative, HIV rapid negative. No e/o of UTI or other infection. Paraneoplastic syndrome in differential, would be nice to still get colonoscopy on Monday as outpatient if able. B12 wnl. (4) Abdominal pain Current Visit: Yes Status: Acute Code(s): R10.9 - UNSPECIFIED ABDOMINAL PAIN SNOMED Code(s): 13945750 Comment: intermittent for 4 months associated with 15lb weight loss and burning in throat. s/p nystatin as outpatient. s/p EGD 01/[address] Mike showed mild diffuse chronic inflammation in stomach. negative h pylori. Continue simethicone viscous lidocaine and protonix added. A1c 5.9 (less likly gastroparesis), lipase wnl. recent 12/27 CT chest/abd/pelvis with IV contrast largely wnl (4.2 cm AAA). (5) Burning sensation of throat Current Visit: Yes Status: Acute Code(s): R07.0 - PAIN IN THROAT SNOMED Code(s): 41687747 Comment: viscous lidocaine. (6) Paresthesias Current Visit: Yes Status: Acute Code(s): R20.2 - PARESTHESIA OF SKIN SNOMED Code(s): 92903354 Comment: b12 wnl, A1c 5.9 (impaired glucose tolerance) likely 2/2 hyponatremia/insomnia (7) Hypertension Current Visit: Yes Status: Acute Code(s): I10 - ESSENTIAL (PRIMARY) HYPERTENSION SNOMED Code(s): 49665959 Comment: continue metopolol 25mg po q6, hydralazine prn. (8) GERD (gastroesophageal reflux disease) Current Visit: No Status: Acute Code(s): K21.9 - GASTRO-ESOPHAGEAL REFLUX DISEASE WITHOUT ESOPHAGITIS SNOMED Code(s): 168708335 Comment: -start protonix (9) DVT (deep venous thrombosis) Current Visit: No Status: Acute Code(s): I82.409 - ACUTE EMBOLISM AND THOMBOS UNSP DEEP VN UNSP LOWER EXTREMITY SNOMED Code(s): 166868643 Comment: -lovenox 40mg daily. (10) Melanoma Current Visit: No Status: Acute Code(s): C43.9 - MALIGNANT MELANOMA OF SKIN , UNSPECIFIED SNOMED Code(s): 030695821 Comment: -follows with Dr. Srinivasan and Dr. Shea Status and Disposition: medicine change to inpatient for continued symptomatic hyponatremia/ intermittent encephalopathy.
[2019-01-04 18:37] LABS: BUN/Creatinine Ratio 17.8 (8-20); Calcium 9.2 mg/dL (8.6-10.3); EGFR African American 63.1 (>60); EGFR Non-African American 52.1 (>60); Potassium 3.7 mmol/L (3.5-5.0)
[2019-01-04] MEDS ORDERED: Melatonin 3 MG TAB PO PRN (20:20)
[2019-01-05] MEDS: NS 0.9% 1000 ML** 1,000 ML IV SCH (04:02)
[2019-01-05] MEDS: Metoprolol Tartrate TAB* 25 MG PO SCH ×3 (05:47→17:41)
[2019-01-05 06:24] LABS: Calcium 8.7 mg/dL (8.6-10.3); Potassium 4.6 mmol/L (3.5-5.0)
[2019-01-05 06:30] LABS: BUN/Creatinine Ratio 21.6 (8-20); EGFR African American 96.5 (>60); EGFR Non-African American 79.8 (>60)
[2019-01-05 07:47] LABS: Magnesium 1.9 mg/dL (1.9-2.7)
[2019-01-05] MEDS: busPIRone TAB* 10 MG PO SCH ×2 (09:35→19:47)
[2019-01-05] MEDS: Aspirin 81 mg CHEW TAB* 81 MG TAB.CHEW PO SCH (09:36)
[2019-01-05] MEDS: Simethicone TAB* 80 MG TAB.CHEW PO SCH ×3 (09:36→17:42)
[2019-01-05] MEDS: Enoxaparin(*) 40 MG/0.4 ML SYR SUBCUT SCH (11:59)
[2019-01-05 15:38] VITALS: BP 122/74
[2019-01-05 16:13] LABS: BUN/Creatinine Ratio 25.4 (8-20); Calcium 8.7 mg/dL (8.6-10.3); EGFR African American 125.4 (>60); EGFR Non-African American 103.6 (>60); Potassium 4.3 mmol/L (3.5-5.0)
[2019-01-05] MEDS: Atorvastatin* 40 MG TAB PO SCH (17:41)
--- NOTE | 2019-01-07 11:14 | DS ---
DISCHARGE SUMMARY: DATE OF ADMISSION: 01/03/19 DATE OF DISCHARGE: 01/05/19 ADMITTING PROVIDER AND PROVIDER ON THE DATE OF DISCHARGE: Alessandro Talbot MD. PRIMARY CARE PROVIDER: Ravin Neri MD. CHIEF COMPLAINT: Chest pressure, intermittent confusion, intermittent abdominal cramping, burning in throat, weight loss, paresthesias. PRINCIPAL DIAGNOSIS: Acute coronary syndrome ruled out; symptomatic hyponatremia (chronic) thought secondary at this time to possible low solute intake and syndrome of inappropriate antidiuretic hormone secretion, but still awaiting full laboratory evaluation to say for sure. HISTORY OF PRESENT ILLNESS/HOSPITAL COURSE: Tracy Mary is a 63-year-old female with a past medical history of 2 melanomas, status post resection about 10 years ago, GERD, multiple episodes of hyponatremia (in June 2018, most consistent with psychogenic polydipsia). She has had 15 pounds of weight loss, initially was intentional but then her appetite has been reduced given some chronic abdominal discomfort, burning in her throat. She had been treated with doxycycline and amoxicillin for suspected possible Lyme, though those results have returned negative a few months ago. She was actually recently admitted 3 days ago from 12/31/18 to 01/01/19 with some nausea and confusion and her sodium at that time was 114 and she was admitted to the ICU, got a total of 800 cc of normal saline and sodium had corrected roughly to 122 after only a few hours in the ICU and then on the morning of discharge, sodium had been 125. Thought she had a component of hypovolemia and she had been fixated on first trying to flush out her system after she had a CT of the chest, abdomen, and pelvis with IV contrast to further elucidate her chronic abdominal pain symptoms on the . Please see H and P for full details. Of note, also during admission she had an EKG which did show some subtle evidence of gastropathy but negative biopsy. When she got home, she was having intermittent chest discomfort alternating between a pressure like pain and a "prickering." This was 7 to 8 on 10 in intensity and recurrent on the morning of admission. She had again episodes where she seemed not quite herself, where she would stare off into the distance or turn around in circles extremely forgetting what she was trying to do. When she presented to the [facility] Room, initial troponins were negative and EKG was without ischemic changes with T-wave inversion in V1. Sodium had improved to 131 and she was admitted for ACS rule out and continued evaluation of her intermittent confusion. She ruled out on telemetry and with troponins, but notably her sodium fell overnight to 124 and she had very poor sleep which is somewhat her baseline, kind of whole lots of stress in her life related to her son who had severe progressive multiple sclerosis. Urine studies evaluating for sodium are still pending ( including the urine albumin and serum uric acid). We do have the urine sodium level back at 121. She was placed on 75 cc normal saline and did have improvement in her sodium to 128 and then again 128 on the afternoon of discharge. First night she had delusions that her was trying to admit her to a psych arias and additional staring episodes that was very concerning to her 3 sisters who know her very well. She had a CT head noncontrast to evaluate for CVA and that was unremarkable. No acute intracranial pathology. She had also an EEG which ruled out any signs of epileptiform activity. It was a completely normal awake EEG. She was also intermittently hypertensive on admission on hospital day #1 and morning of 2 as high as 180s to 190s and she initially was started on metoprolol and will be continued on discharge. She was given viscous lidocaine which helped with the burning of her throat. Hence being also discharged on a low dose of Protonix. She had B12 level which was high at 1182, TSH of 2.58, T4 of 8.4, elevated a.m. cortisol of 31 (though of note she only got 2 hours of sleep that night). To further evaluate her encephalopathy, syphilis IgG was negative, HIV 1 and 2 was negative. Her serum osmolality was confirmed to be low at 254. She had replacement of her magnesium levels. It was considered overall she was feeling somewhat improved, though still with these intermittent and subacute to chronic issues with her abdominal pain and burning with swallowing. She does report she had a 14-day course of nystatin which did not improve her symptoms a few months ago. It was considered important for her to be able to get additional studies with her already arranged colonoscopy with Dr. Mike on Monday01/07/19 given her history of polyp, her abdominal complaints, and the fact that potential paraneoplastic syndrome could be explaining some of her symptoms. She also attests that she often avoids salt in her diet to help control her blood pressure. Overall, she is very skeptical of medications in general. For her anxiety, she was started on BuSpar 10 mg p.o. b.i.d. (avoiding SSRIs, not wanting to the picture for additional cause of SIADH or low sodium). DISCHARGE MEDICATIONS: 1. BuSpar 10 mg p.o. b.i.d. 2. Magnesium hydroxide, aluminum hydroxide, simethicone t.i.d. p.r.n. 3. Melatonin 3 mg q.h.s. p.r.n. 4. Metoprolol succinate 50 mg p.o. daily. 5. Protonix 20 mg daily. 6. Sodium chloride tab 1 g p.o. b.i.d. These are all new. DISCHARGE DIET: Heart healthy. Please do not avoid salt and please avoid excessive water intake. She should follow up with Dr. Mike on 01/07/19 as already scheduled for outpatient colonoscopy. She should follow up with her PCP Ravin Neri within 1 to 2 weeks. She was also recommended to follow up with [facility] on 01/09/19 or 01/10/19 to get a recheck of her sodium level and symptoms and to review pending urine studies that may help determine the etiology of this case of hyponatremia. DISPOSITION: Home. CONDITION: Stable. TIME SPENT ON DISCHARGE: 55 minutes. [id number]/CPS #: [id number] BRITTANY
== END 2019-01-05 20:00 | disposition home or self-care (01) ==
LOC: ED 07:21 → MEDTELE 11:42
PROVIDERS: ADMIT Internal Medicine; ATTEND Internal Medicine
DX: R07.89 Other chest pain (principal); R41.0 Disorientation, unspecified; R10.9 Unspecified abdominal pain; G93.40 Encephalopathy, unspecified; E87.1 Hypo-osmolality and hyponatremia; K21.9 Gastro-esophageal reflux disease without esophagitis; K59.00 Constipation, unspecified; R41.82 Altered mental status, unspecified; R07.0 Pain in throat; R20.2 Paresthesia of skin; C43.9 Malignant melanoma of skin, unspecified; I82.409 Acute embolism and thrombosis of unspecified deep veins of unspecified lower extremity; Z79.82 Long term (current) use of aspirin
CPT/HCPCS: 36415; 70450; 71045; 80048; 80053; 80061; 81003; 82378; 82436; 82530; 82533; 82607; 83036; 83605; 83690; 83735; 83880; 83930; 84133; 84300; 84436; 84443; 84484; 84550; 85025; 85652; 85730; 86140; 86703; 86780; 93005; 95816; 96365; 96366; 96372; 99284; A9270-GY; G0378; J0360; J1650; J3475

== ENCOUNTER 2019-01-08 19:18 | Emergency (ER) | payer BC ==
--- NOTE | 2019-01-08 22:38 | ED ---
Hypertension - HPI Summary HPI Summary: A 63 y/o female accompanied by her presents to [facility] with a chief complaint of high blood pressure. The patient was admitted one week ago for four days due to her HTN. She has a Hx of hyponatremia. Per , the last 5 days the patient has been "not with it". In the ED the patient thought that it was January of 2020 and then stated that it was 2018. Her also reports that she has lost 15-20 lbs since September 2018. She had a colonoscopy done yesterday. Her reports that she is unnecessarily worried that she is losing her insurance and her job. - History of Current Complaint Chief Complaint: EDHypertension Stated Complaint: HIGH BLOOD PRESURE/ABNORMAL LABS Time Seen by Provider: 01/08/19 22:29 Hx Obtained From: Patient, Family/Edi Architect Onset/Duration: Started Days Ago, Still Present Timing: Constant Reported Blood Pressure Prior To Arrival: "high", 170/123 at triage Aggravating Factor(s): Nothing Alleviating Factor(s): Nothing Associated Signs & Symptoms: Other: - "not with it", low sodium - Allergies/Home Medications Allergies/Adverse Reactions: Allergies Allergy/AdvReac Type Severity Reaction Status Date / Time adhesive Allergy Unknown Verified 01/10/19 08:50 Reaction Details latex Allergy skin Verified 01/10/19 08:50 irritation PMH/Surg Hx/FS Hx/Imm Hx Endocrine/Hematology History: Denies: Hx Diabetes, Hx Thyroid Disease Cardiovascular History: Denies: Hx Hypertension, Hx Myocardial Infarction, Hx Pacemaker/ICD Respiratory History: Denies: Hx Asthma, Hx Chronic Obstructive Pulmonary Disease (COPD) GI History: Reports: Hx Gastroesophageal Reflux Disease - OCCASSIONAL IN PAST, HAS MEDS, DOESN'T TAKE, Hx Irritable Bowel - Hx OF, NO CURRENT Sx or MEDS Denies: Hx Ulcer History: Denies: Hx Dialysis, Hx Renal Disease Musculoskeletal History: Reports: Hx Arthritis - FEET, LOW BACK, NECK Sensory History: Denies: Hx Contacts or Glasses, Hx Hearing Aid Opthamlomology History: Denies: Hx Contacts or Glasses Neurological History: Reports: Hx Headaches Comment Only: Hx Migraine - Hx OF, NONE IN 10 YEARS Psychiatric History: Denies: Hx Panic Disorder - Cancer History Cancer Type, Location and Year: Melanoma- in bwn toes Hx Chemotherapy: No Hx Radiation Therapy: No - Surgical History Surgery Procedure, Year, and Place: in 40's had oophorectomy and hysterectomy. BREAST IMPLANTS - SALINE. BIOPSY - NECK, AXILARY, - BENIGN Hx Anesthesia Reactions: Yes - AFTER HYSTERECTOMY N/V Infectious Disease History: No Infectious Disease History: Denies: Hx Clostridium Difficile, Hx Hepatitis, Hx Human Immunodeficiency Virus (HIV), Traveled Outside the [place] in Last 30 Days - Family History Known Family History: Positive: Cardiac Disease, Hypertension, Diabetes, Other - No breast CA - Social History Alcohol Use: Occasionally Alcohol Amount: MAYBE 1-2 DRINKS/MONTH Hx Substance Use: No Substance Use Type: Reports: None Hx Tobacco Use: No Smoking Status (MU): Never Smoked Tobacco Have You Smoked in the Last Year: No Review of Systems Positive: Other - positive: low sodium, "not with it". Negative: Fever Positive: Other - positive: high BP All Other Systems Reviewed And Are Negative: Yes Physical Exam - Summary Physical Exam Summary: Appearance: Well-appearing, Well-nourished, lying in bed comfortably Skin: Warm, dry, no obvious rash Eyes: sclera anicteric, no conjunctival pallor ENT: mucous membranes moist, pharynx appears normal Neck: Supple, nontender Respiratory: Clear to auscultation, no signs of respiratory distress Cardiovascular: Normal S1, S2. No murmurs. Normal distal pulses in tibial and radial bilaterally. Abdomen: Soft, nontender, normal active bowel sounds present Musculoskeletal: Normal, Strength/ROM Intact Neurological: paranoid thoughts, oriented to person and place but not date Psychiatric: affect is normal, does not appear anxious or depressed Triage Information Reviewed: Yes Vital Signs On Initial Exam: Initial Vitals Temp Pulse Resp BP Pulse Ox 97.9 F 83 20 170/123 98 01/08/19 19:29 01/08/19 19:29 01/08/19 19:29 01/08/19 19:29 01/08/19 19:29 Vital Signs Reviewed: Yes Diagnostics - Vital Signs Vital Signs Temp Pulse Resp BP Pulse Ox 01/08/19 21:43 98.6 F 76 14 176/114 99 01/08/19 19:29 97.9 F 83 20 170/123 98 - Laboratory Result Diagrams: 01/08/19 22:48 01/08/19 22:48 Lab Statement: Any lab studies that have been ordered have been reviewed, and results considered in the medical decision making process. Hypertension Course/Dx - Course Course Of Treatment: A 63 y/o female accompanied by her presents to [facility] with a chief complaint of high blood pressure. The patient was admitted one week ago for four days due to her HTN. She has a Hx of hyponatremia. Per , the last 5 days the patient has been "not with it". The physical exam revealed that she had paranoid thoughts and is oriented to person and place but not to date. In the ED course the patient was given Sodium Chloride IV. Blood work and chemistries obtained. Sodium 129. The patient has quite altered thought processes consisting mainly of paranoid thoughts involving being cut off from her health insurance, losing her job, and similar preoccupations. Her assures me that none of these are based in reality, the patient continues to have them. She is mostly oriented although she does not know the year immediately; she did correct herself and get the year correctly. She has no focal neurologic findings and is undergone an extensive workup including CT head which was normal, multiple chemical panels notable for transient hyponatremia which is now under control, thyroid studies and numerous other investigations which have failed to turn off a medical reason for her recent paranoia. I have asked our mental health staff to meet with her and given an opinion as to whether the patient's is primarily suffering from a mental health problem, as I am unable to find a physiologic or medical process that would account for her symptoms. Per mental health construction engineering manager, Dr. Engle has recommended discharge and follow up with [facility] and PCP. Dx: unspecified psychosis. The patient will be discharged and is agreeable with this plan. - Diagnoses Provider Diagnoses: Unspecified psychosis, Hyponatremia - Physician Notifications Discussed Care Of Patient With: Kira Engle Time Discussed With Above Provider: 05:15 Instructed by Provider To: Other - Per mental health construction engineering manager, Dr. Engle has recommended discharge and follow up with [facility] and PCP. Dx: unspecified psychosis Discharge - Sign-Out/Discharge Documenting (check all that apply): Patient Departure - DC Patient Received Moderate/Deep Sedation with Procedure: No - Discharge Plan Condition: Good Disposition: HOME Patient Education Materials: Hyponatremia (ED) Referrals: [facility] [Outside] Ravin Neri MD [Primary Care Provider] - Additional Instructions: Your serum sodium level was 129 tonight which is only mildly low and not low enough to cause symptoms. I do not think here present symptoms can be attributed to low sodium level. I encourage you to follow up carefully with your primary care doctor and to have a more comprehensive mental health evaluation. - Billing Disposition and Condition Condition: GOOD Disposition: Home - Attestation Statements Document Initiated by Corrine: Yes Documenting Scribe: Alejo Esat Provider For Whom Corrine is Documenting (Include Credential): Hansel Pedro MD Scribe Attestation: I, Alejo East, scribed for Hansel Pedro MD on 01/12/19 at 0552. Scribe Documentation Reviewed: Yes Provider Attestation: The documentation as recorded by the Alejo cantrell accurately reflects the service I personally performed and the decisions made by me, Hansel Pedro MD Status of Scribe Document: Viewed
[2019-01-08] MEDS ORDERED: NS 0.9% 1000 ML** 1,000 ML IV SCH (22:45)
[2019-01-08 22:59] LABS: Hematocrit 39 % (33-41); Mean Corpuscular HGB Conc 33 g/dL (31-36); Mean Corpuscular Hemoglobin 28 pg (27-31); Mean Corpuscular Volume 83 fL (80-97); Mean Platelet Volume 6.9 fL (7.4-10.4); Platelet Count 412 10^3/uL (150-450); Red Blood Count 4.69 10^6 /uL (3.70-4.87); Red Cell Distribution Width 18 % (10.5-15); White Blood Count 4.9 10^3/uL (3.5-10.8)
[2019-01-08 23:13] LABS: ABS Basophils 0 10^3/ul (0-0.2); ABS Eosinophils 0 10^3/ul (0-0.6); ABS Lymphocytes 1.1 10^3/ul (1.0-4.8); ABS Monocytes 0.6 10^3/ul (0-0.8); ABS Nucleated RBC 0 10^3/ul; Calcium 9.8 mg/dL (8.6-10.3); EGFR Non-African American 101.6 (>60); Eosinophil % 0.3 %; Lymphocyte % 23.3 %; Nucleated Red Blood Cells % 0; Potassium 3.7 mmol/L (3.5-5.0)
[2019-01-09 05:45] VITALS: BP 179/111
== END 2019-01-09 05:43 | disposition home or self-care (01) ==
LOC: ED 19:18
DX: F29 Unspecified psychosis not due to a substance or known physiological condition (principal); E87.1 Hypo-osmolality and hyponatremia; R03.0 Elevated blood-pressure reading, without diagnosis of hypertension; K21.9 Gastro-esophageal reflux disease without esophagitis; M19.072 Primary osteoarthritis, left ankle and foot; M19.071 Primary osteoarthritis, right ankle and foot; M47.816 Spondylosis without myelopathy or radiculopathy, lumbar region; M47.812 Spondylosis without myelopathy or radiculopathy, cervical region; Z91.040 Latex allergy status; Z91.048 Other nonmedicinal substance allergy status
CPT/HCPCS: 36415; 80048; 84550; 85025; 86780; 99284

== ENCOUNTER 2019-01-10 08:24 | Emergency (ER) | payer BC ==
[2019-01-10 08:51] VITALS: BP 121/89
--- NOTE | 2019-01-10 10:36 | UC ---
Bite Injury/Animal HPI - HPI Summary HPI Summary: 63-year-old woman comes in with a chief complaint of a tick attached to her left abdomen. She noticed it this morning. She's not sure how long its been in there. His globe redness around the tick. No bull's-eye rash. Patient has had a recent experience of having a lot of fatigue and has been in the hospital where she's had hyponatremia and low magnesium and is also getting worked up for the fatigue through one of the hospital drug inspector Dr. Talbot. - History of Current Complaint Chief Complaint: UCSkin Stated Complaint: TICK BITE Time Seen by Provider: 01/10/19 10:01 Pain Intensity: 0 - Allergies/Home Medications Allergies/Adverse Reactions: Allergies Allergy/AdvReac Type Severity Reaction Status Date / Time adhesive Allergy Unknown Verified 01/10/19 08:50 Reaction Details latex Allergy skin Verified 01/10/19 08:50 irritation Home Medications: Home Medications Antidepressant/Antianxiety 1 tab PO QPM 01/10/19 [History Confirmed 01/10/19] PMH/Surg Hx/FS Hx/Imm Hx Previously Healthy: Yes - SEE HPI Cardiovascular History: Hypertension GI/ History: Gastroesophageal Reflux - Surgical History Surgical History: Yes Surgery Procedure, Year, and Place: in 40's had oophorectomy and hysterectomy. BREAST IMPLANTS - SALINE. BIOPSY - NECK, AXILARY, - BENIGN - Family History Known Family History: Positive: Cardiac Disease, Hypertension, Diabetes, Other - No breast CA - Social History Alcohol Use: Occasionally Alcohol Amount: MAYBE 1-2 DRINKS/MONTH Substance Use Type: None Smoking Status (MU): Never Smoked Tobacco Have You Smoked in the Last Year: No - Immunization History Most Recent Influenza Vaccination: 2018 Most Recent Pneumonia Vaccination: within last 7 years; unknown Review of Systems All Other Systems Reviewed And Are Negative: Yes Constitutional: Positive: Fatigue, Other - SEE HPI Skin: Positive: Other - SEE HPI Eyes: Positive: Negative ENT: Positive: Negative Respiratory: Positive: Negative Cardiovascular: Positive: Negative Motor: Positive: Negative Neurovascular: Positive: Negative Musculoskeletal: Positive: Negative Neurological: Positive: Negative Psychological: Positive: Negative Is Patient Immunocompromised?: No Physical Exam Triage Information Reviewed: Yes Appearance: Well-Appearing, No Pain Distress, Well-Nourished Vital Signs: Initial Vital Signs Temp 97.6 F 05/02/19 08:37 Pulse 90 01/10/19 08:37 Resp 18 01/10/19 08:37 BP 121/89 01/10/19 08:37 Pulse Ox 100 01/10/19 08:37 Vital Signs Reviewed: Yes Eye Exam: Normal Eyes: Positive: Conjunctiva Clear Neck: Positive: Supple Respiratory: Positive: No respiratory distress Musculoskeletal Exam: Normal Musculoskeletal: Positive: Strength Intact, ROM Intact Neurological Exam: Normal Neurological: Positive: Alert, Muscle Tone Normal Psychological Exam: Normal Psychological: Positive: Normal Response To Family, Age Appropriate Behavior Skin: Positive: Other - LEFT ABDOMEN ATTACHED TICK WITH 1CM SURROUNDING ERYTHEMA. I REMOVED THE TICK WITH A TICK TWISTER. Bite Injury Course/Dx - Course Course Of Treatment: Patient was prescribed doxycycline 200 mg I prescribed doxycycline 200 mg by mouth a single dose for the attached tick. With the patient continued to have fatigue and history of hyponatremia and hypomanic magnesium I have ordered labs to check on those values and also did a Lyme screen. Patient will be following up with the drug inspector Dr. Talbot. - Differential Dx/Diagnosis Provider Diagnosis: Tick bite of abdomen, Fatigue, Hyponatremia, Hypomagnesemia Discharge - Sign-Out/Discharge Documenting (check all that apply): Patient Departure All imaging exams completed and their final reports reviewed: No Studies - Discharge Plan Condition: Stable Disposition: HOME Prescriptions: DOXYcycline CAP(*) [DOXYcycline 100MG CAP(*)] 200 mg PO ONCE #2 cap Patient Education Materials: Tick Bite (ED), Hyponatremia (ED), Hypomagnesemia (ED), Fatigue (ED) Referrals: Ravin Neri MD [Primary Care Provider] - Alessandro Talbot MD [Medical Doctor] - Additional Instructions: FOLLOW UP WITH YOUR DOCTOR. GET REEVALUATED SOONER IF YOUR CONDITION WORSENS OR ANY QUESTIONS OR CONCERNS. - Billing Disposition and Condition Condition: STABLE Disposition: Home
[2019-01-10 16:03] LABS: Calcium 9.7 mg/dL (8.6-10.3); Magnesium 2.4 mg/dL (1.9-2.7); Potassium 4.2 mmol/L (3.5-5.0)
[2019-01-10 16:09] LABS: EGFR African American 85.8 (>60); EGFR Non-African American 70.9 (>60)
--- NOTE | 2019-01-11 13:21 | UC ---
- Progress Note Progress Note: BMP AND MAGNESIUM REVIEWED. MAGNESIUM IS WITHIN NORMAL LIMITS. SODIUM IS STILL LOW AT 132 BUT THIS IS IMPROVED FROM 129 ON 01/08/19. PATIENT IS FOLLOWING UP WITH AN ENGRAVER RUBBER ALREADY. NO ACUTE INTERVENTION OR CHANGE IN MANAGEMENT IS INDICATED TODAY. Course/Dx - Diagnoses Provider Diagnoses: Tick bite of abdomen, Fatigue, Hyponatremia, Hypomagnesemia Discharge - Sign-Out/Discharge Documenting (check all that apply): Post-Discharge Follow Up All imaging exams completed and their final reports reviewed: No Studies - Discharge Plan Condition: Stable Disposition: HOME Prescriptions: DOXYcycline CAP(*) [DOXYcycline 100MG CAP(*)] 200 mg PO ONCE #2 cap Patient Education Materials: Tick Bite (ED), Hyponatremia (ED), Hypomagnesemia (ED), Fatigue (ED) Referrals: Alessandro Talbot MD [Medical Doctor] - Ravin Neri MD [Primary Care Provider] - Additional Instructions: FOLLOW UP WITH YOUR DOCTOR. GET REEVALUATED SOONER IF YOUR CONDITION WORSENS OR ANY QUESTIONS OR CONCERNS. - Billing Disposition and Condition Condition: STABLE Disposition: Home
== END 2019-01-10 10:40 | disposition home or self-care (01) ==
LOC: UCEAST 08:24
DX: S30.861A Insect bite (nonvenomous) of abdominal wall, initial encounter (principal); W57.XXXA Bitten or stung by nonvenomous insect and other nonvenomous arthropods, initial encounter; Y92.9 Unspecified place or not applicable; R53.83 Other fatigue; E87.1 Hypo-osmolality and hyponatremia; E83.42 Hypomagnesemia; I10 Essential (primary) hypertension; K21.9 Gastro-esophageal reflux disease without esophagitis; Z91.040 Latex allergy status; Z91.048 Other nonmedicinal substance allergy status
CPT/HCPCS: 36415; 80048; 83735; 86618; 99212; G0463

== ENCOUNTER 2019-02-28 01:06 | Observation (INO) | payer BC ==
[~2019-02-28 01:06] MED LIST: LORazepam INJ* 2 MG/ML 1 ML VIAL IV PUSH ONE
[2019-02-28] MEDS ORDERED: Lorazepam PYXIS KEY ONE (01:11)
[2019-02-28] MEDS ORDERED: LORazepam INJ* 2 MG/ML 1 ML VIAL ONE (01:12)
--- NOTE | 2019-02-28 01:19 | ED ---
Altered Mental Status - HPI Summary HPI Summary: A 63 y/o female brought in by [place] ambulance and police presents to [facility] with a chief complaint of AMS. Per police, the patient has an autoimmune disease that is affecting her brain. She is reportedly supposed to be going to [place] tomorrow, but has been having side effects. Per police, the patients had to restrain the patient after convulsions, screaming theyre coming to get me, flailing all over, and trying to jump out of the second story window. Upon police arrival the patient was handcuffed. Per , the patient was throwing things around and "just lost it." He was trying to calm her down but she tried to rip stuff off the bradshaw, and go out the window. She was sleeping prior to the hallucinations today. Hallucinations have been happening intermittently for the past week. 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 Ashby at [facility] three weeks ago. She is supposed to go back there on 03/07/19. She takes Prednisone 50mg, which was upped from 40mg a week ago. The original plan was to lower the dose of Prednisone by 10mg every week if the patient was getting better, but at 40 mg the patient was getting worse. The patient was transferred from [facility] to [facility] in a helicopter. She had a spinal tap done there. She is not on seizure medications. The patient reports that she is having a mild headache. Dr. Ashby recommended PET scan before 03/07/19. The patient was at [facility] for about a week, and went home about three weeks ago. - History Of Current Complaint Stated Complaint: "AMS" PER EMS Time Seen by Provider: 02/28/19 01:08 Hx Obtained From: Patient, Family/Instrument And Electrical Technician, EMS, Other: - police Onset/Duration: Still Present Timing: Constant, Lasting Hours Severity Initially: Mild Severity Currently: Mild Character: Agitation Aggravating Factor(s): Nothing Alleviating Factor(s): Nothing Associated Signs And Symptoms: Negative: Fever Has Suicidal: Thoughts - reportedly tried to jump out second story window - Allergies/Home Medications Allergies/Adverse Reactions: Allergies Allergy/AdvReac Type Severity Reaction Status Date / Time adhesive Allergy Unknown Verified 01/10/19 08:50 Reaction Details latex Allergy skin Verified 01/10/19 08:50 irritation PMH/Surg Hx/FS Hx/Imm Hx Endocrine/Hematology History: Denies: Hx Diabetes, Hx Thyroid Disease Cardiovascular History: Reports: Hx Hypertension Denies: Hx Myocardial Infarction, Hx Pacemaker/ICD Respiratory History: Denies: Hx Asthma, Hx Chronic Obstructive Pulmonary Disease (COPD) GI History: Reports: Hx Gastroesophageal Reflux Disease - OCCASSIONAL IN PAST, HAS MEDS, DOESN'T TAKE, Hx Irritable Bowel - Hx OF, NO CURRENT Sx or MEDS Denies: Hx Ulcer History: Denies: Hx Dialysis, Hx Renal Disease Musculoskeletal History: Reports: Hx Arthritis - FEET, LOW BACK, NECK Sensory History: Denies: Hx Contacts or Glasses, Hx Hearing Aid Opthamlomology History: Denies: Hx Contacts or Glasses Neurological History: Reports: Hx Headaches Comment Only: Hx Migraine - Hx OF, NONE IN 10 YEARS Psychiatric History: Denies: Hx Panic Disorder - Cancer History Cancer Type, Location and Year: Melanoma- in bwn toes Hx Chemotherapy: No Hx Radiation Therapy: No - Surgical History Surgery Procedure, Year, and Place: in 40's had oophorectomy and hysterectomy;. BREAST IMPLANTS - SALINE;. BIOPSY - NECK, AXILLARY, - BENIGN;. MELANOMA IN TOE REMOVED; Hx Anesthesia Reactions: Yes - AFTER HYSTERECTOMY N/V Infectious Disease History: No Infectious Disease History: Denies: Hx Clostridium Difficile, Hx Hepatitis, Hx Human Immunodeficiency Virus (HIV), Traveled Outside the [place] in Last 30 Days - Family History Known Family History: Positive: Cardiac Disease, Hypertension, Diabetes, Other - No breast CA - Social History Alcohol Use: Occasionally Alcohol Amount: MAYBE 1-2 DRINKS/MONTH Hx Substance Use: No Substance Use Type: Reports: None Hx Tobacco Use: No Smoking Status (MU): Never Smoked Tobacco Have You Smoked in the Last Year: No Review of Systems Negative: Fever Neurological: Other - positive: AMS Positive: Headache Positive: Other - positive: hallucinations, trying to jump out second story window All Other Systems Reviewed And Are Negative: Yes Physical Exam - Summary Physical Exam Summary: VITAL SIGNS: Reviewed. GENERAL: Patient is a well-developed and nourished FEMALE who is lying comfortable in the stretcher. Patient is not in any acute respiratory distress. HEAD AND FACE: No signs of trauma. No ecchymosis, hematomas or skull depressions. No sinus tenderness. EYES: PERRLA, EOMI x 2, No injected conjunctiva, no nystagmus. EARS: Hearing grossly intact. Ear canals and tympanic membranes are within normal limits. MOUTH: Oropharynx within normal limits. NECK: Supple, trachea is midline, no adenopathy, no JVD, no carotid bruit, no c- spine tenderness, neck with full ROM CHEST: Symmetric, no tenderness at palpation LUNGS: Clear to auscultation bilaterally. No wheezing or crackles. CVS: Regular rate and rhythm, S1 and S2 present, no murmurs or gallops appreciated. ABDOMEN: Soft, non-tender. No signs of distention. No rebound no guarding, and no masses palpated. Bowel sounds are normal. EXTREMITIES: FROM in all major joints, no edema, no cyanosis or clubbing. NEURO: Alert and oriented x 3. No acute neurological deficits. Speech is normal and follows commands. SKIN: Dry and warm Triage Information Reviewed: Yes Vital Signs On Initial Exam: Initial Vitals Temp Pulse Resp BP Pulse Ox 99.9 F 113 18 146/105 98 02/28/19 01:07 02/28/19 01:07 02/28/19 01:07 02/28/19 01:07 02/28/19 01:07 Vital Signs Reviewed: Yes Diagnostics - Vital Signs Vital Signs Temp Pulse Resp BP Pulse Ox 02/28/19 01:07 99.9 F 113 18 146/105 98 - Laboratory Result Diagrams: 02/28/19 01:32 02/28/19 01:32 Lab Statement: Any lab studies that have been ordered have been reviewed, and results considered in the medical decision making process. - Radiology CXR Radiology Interpretation Completed By: ED Physician Summary of Radiographic Findings: No acute process. Pending official imaging report. Re-Evaluation - Re-Evaluation First Eval Re-Evaluation Time: 02:37 Change: Unchanged Comment: Discussed plan for admission Altered Mental Statu Course/Dx - Course Course Of Treatment: A 63 y/o female brought in by [place] ambulance and police presents to [facility] with a chief complaint of AMS. Per police, the patient has an autoimmune disease that is affecting her brain. Pt came in with police and was handcuffed. She seemed anxious and was not answering questions. She was given 2mg Ativan IV and then handcuffs were removed, then the patient was more cooperative and the exam was normal.CXR showed no acute process. In the ED course the patient was given Ativan IV, Sodium Chloride IV and Potassium Chloride PO. Bloodwork and chemistries obtained. Lactic acid of 2.6 at 01:32. Discussed case with Dr. Portillo of [facility] in [place] , who was covering for Dr. Ashby, the patient's neurologist, and recommended admission for observation. Case discussed with Dr. Jenkins, hospitalist, who accepted the patient for admission. - Diagnoses Provider Diagnoses: Encephalopathy, Agitation - Provider Notifications Discussed Care Of Patient With: Michelle Jenkins Time Discussed With Above Provider: 02:26 Instructed by Provider To: Admit As Inpatient Discharge - Sign-Out/Discharge Documenting (check all that apply): Patient Departure - admit Patient Received Moderate/Deep Sedation with Procedure: No - Discharge Plan Condition: Fair Disposition: ADMITTED TO [facility] Referrals: Ravin Neri MD [Primary Care Provider] - - Attestation Statements Document Initiated by Scribe: Yes Documenting Scribe: Alejo East Provider For Whom Scribe is Documenting (Include Credential): Jah Wagner MD Scribe Attestation: Alejo Lomeli, scribed for Jah Wagner MD on 02/28/19 at 0227. Status of Scribe Document: Ready Consult Consult: At 01:[address] Portillo of [facility] in [place], who recommended admission for observation.
[2019-02-28] MEDS ORDERED: NS 0.9% 1000 ML** 1,000 ML IV ONE ×2 (01:22→02:09)
[2019-02-28] MEDS ORDERED: Lorazepam PYXIS KEY PRN (01:34)
[2019-02-28 01:42] LABS: ABS Lymphocytes 0.5 10^3/ul (1.0-4.8); ABS Monocytes 0.3 10^3/ul (0-0.8); ABS Neutrophils 3.9 10^3/ul (1.5-7.7); Eosinophil % 0.1 %; Hematocrit 35 % (35-47); Hemoglobin 11.9 g/dL (12.0-16.0); Lymphocyte % 11.2 %; Mean Corpuscular HGB Conc 34 g/dL (31-36); Mean Corpuscular Hemoglobin 31 pg (27-31); Mean Corpuscular Volume 89 fL (80-97); Mean Platelet Volume 7.1 fL (7.4-10.4); Platelet Count 247 10^3/uL (150-450); Red Blood Count 3.91 10^6 /uL (3.70-4.87); Red Cell Distribution Width 19 % (10-15); White Blood Count 4.8 10^3/uL (3.5-10.8)
[2019-02-28 01:55] LABS: Activated Partial Thrombo Time 22.4 seconds (26.0-38.0); INR 0.89 (0.82-1.09)
[2019-02-28 01:59] LABS: ALT 26 U/L (7-52); AST 18 U/L (13-39); Albumin 3.4 g/dL (3.2-5.2); Albumin/Globulin Ratio 1.3 (1-3); Alkaline Phosphatase 69 U/L (34-104); Anion Gap 6 mmol/L (2-11); Blood Urea Nitrogen 29 mg/dL (6-24); C Reactive Protein < 1.00 mg/L (<8.01); CO2 Carbon Dioxide 27 mmol/L (22-32); Calcium 8.8 mg/dL (8.6-10.3); Chloride 98 mmol/L (101-111); Creatine Kinase 80 U/L (10-223); EGFR African American 104.7 (>60); EGFR Non-African American 86.5 (>60); Globulin 2.7 g/dL (2-4); Glucose 140 mg/dL (70-100); Potassium 3.2 mmol/L (3.5-5.0); Sodium 131 mmol/L (135-145); Total Protein 6.1 g/dL (6.4-8.9)
[2019-02-28] MEDS ORDERED: Potassium Chlor TAB* 20 MEQ TAB.ER PO ONE (02:01)
[2019-02-28] MEDS ORDERED: Acetaminophen TAB* 325 MG PO PRN (03:58)
[2019-02-28] MEDS ORDERED: NS 0.9% 1000 ML** 1,000 ML IV SCH (04:00)
[2019-02-28] MEDS ORDERED: LORazepam INJ* 2 MG/ML 1 ML VIAL IV PUSH PRN (04:06)
--- NOTE | 2019-02-28 06:42 | HP ---
CC: Dr. Neri; Dr. Srinivasan * HISTORY AND PHYSICAL: DATE OF ADMISSION: 02/28/19 PRIMARY CARE PROVIDER: Dr. Neri. ONCOLOGIST: Dr. Srinivasan. CHIEF COMPLAINT: Agitation. HISTORY OF PRESENT ILLNESS: Ms. Mary is a 63-year-old female who since Easter of this year has had episodes of severe confusion and agitation. These episodes culminated with the patient having seizure on 01/25/19. She was brought to [facility] ER where she was evaluated. The seizure was described as the patient having involuntary facial movements and arm tremors. She was nonverbal when she presented. No seizure activity was noted in the ER. The patient was going to be evaluated at [facility] for these confusional episodes and the patient was airlifted to [facility]. During that hospitalization at [place], the patient was diagnosed with autoimmune encephalitis. She was given a course of IVIG and started on prednisone. The patient's states that the first week following her hospitalization, she seems to be getting better. This was on prednisone 60 mg daily. This was then tapered to 50 mg daily for a week, then 40 mg daily for a week. When her prednisone dose dropped to 40 mg daily, the patient was noted to have increased episodes of confusion with worsened severity. The patient's also states that the patient has not been normal for any prolonged period of time in the last month. On the evening of 02/27/19 to 02/28/19, the patient had been sleeping. She awakened suddenly and began to scream "they are coming to get me and we are all going to ." She was reportedly flailing all over and tried to jump out of the second pete window. She was reportedly pulling frames off the wall and throwing them. She was throwing objects from shelves onto the floor. The patient's had to hold her down to prevent her from trying to get off the window. EMS was contacted and the police were the first to arrive. They ultimately had to handcuff the patient. When she arrived to the emergency room , she was still quite agitated. She was not speaking to anyone. The patient received 2 mg of IV Ativan in the emergency room, and approximately 20 minutes later, the patient has been able to have relatively appropriate conversation. The patient's states that this was the most normal she had been in some time. The patient now is sleeping. She only wakes up once during my questioning and exam and she tells me that she needs clothes. She did not answer any of my other questions. PAST MEDICAL HISTORY: 1. Autoimmune encephalitis. 2. 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 3. History of melanoma, status post excision. PAST SURGICAL HISTORY: 1. Hysterectomy. 2. Breast implants. 3. Melanoma excision. MEDICATIONS: 1. Prednisone 50 mg p.o. daily. 2. Haldol 0.5 mg p.o. twice daily. ALLERGIES: LATEX and ADHESIVES. FAMILY HISTORY: Mom is living, she has a history of heart disease. Dad at the age of 70 of lung cancer. The patient has 8 siblings, some of which have heart disease. The patient has a son who has progressive MS. SOCIAL HISTORY: The patient does not smoke. She drinks alcohol rarely. She is a teacher at [employer]. She is . She has 2 children from her first marriage, none with her current . REVIEW OF SYSTEMS: Unobtainable from the patient. PHYSICAL EXAMINATION GENERAL: The patient is a well-developed, thin, middle-aged female, seen lying in the stretcher sleeping and awakens only after nearly completing physical exam. VITAL SIGNS: Blood pressure 119/82, pulse 90, respirations 16, temp 99.9, O2 sat 100% on room air. HEENT: The patient does not open her eyes for me to inspect her pupils or extraocular muscles. She does not open her mouth for me. There is no submandibular, cervical or supraclavicular adenopathy. Thyroid is not enlarged. No thyroid nodules are noted. PULMONARY: Lungs are clear to auscultation bilaterally. CARDIAC: Normal S1, S2. Regular rate and rhythm. I do not appreciate any murmurs. There is no lower extremity edema. ABDOMEN: Bowel sounds are present. Abdomen is soft, nontender, nondistended. MUSCULOSKELETAL: The patient does move around in the bed and appears to move all 4 extremities symmetrically. NEURO: Unable to be performed as the patient did not cooperate with exam. PSYCH: This was not able to be tested. SKIN: Warm and dry. There are no rashes. DIAGNOSTIC STUDIES/LAB DATA: WBCs 4.8, hemoglobin 11.9, hematocrit 35, platelets 247. INR 0.89. Sodium 131, potassium 3.2, chloride 98, CO2 of 27, BUN 29, creatinine 0.69, glucose 140. Lactic acid 2.6. Calcium 8.8. Bilirubin 0.3, AST 18, ALT 26, alk phos 69. CPK 80. CRP less than 1. Albumin 3.4. Chest x-ray to my interpretation is clear without any focal infiltrates. ASSESSMENT AND PLAN: Ms. Mary is a 63-year-old female with a complicated medical history and course over the last 2 months, who was recently diagnosed with autoimmune encephalitis being treated with high-dose prednisone and IVIG infusions, who is brought to the emergency room for severe agitation/confusion. 1. Altered mental status. It is unclear if the event that precipitated her ER evaluation is related to this new diagnosis of autoimmune encephalitis. I question if this may have been seizure activity. The patient seemed to improve after Ativan 2 mg. She had a negative EEG in her hospitalization in December 2018. We are going to hold off on repeating this for now. I will get a CT of the brain, however. The patient follows with Dr. Ashby. Dr. Wagner contacted Dr. Portillo who is covering for Dr. Ashby. It was recommended that the patient be admitted for observation. Neuro checks will be ordered. We will continue the prednisone 50 mg daily. Neurology consultation may be warranted if the patient is not back to her most recent baseline when she awakens from the Ativan. 2. Autoimmune encephalitis. Continue prednisone 50 mg daily. I am going to hold the Haldol as the patient's states that her symptoms began to worsen after initiating this. 3. Mild hyponatremia. This has been an ongoing issue for the patient. This dates back to at least 2011. I have ordered normal saline at 100 mL per hour. Her sodium will need to be monitored intermittently. 4. Mild hypokalemia. She received 40 mEq of potassium supplementation in the ER. This will be followed up on. 5. Lactic acidosis. This may be secondary to seizure activity versus a severe agitation and flailing that was described by her . Followup lactic acid has been ordered. 6. DVT prophylaxis. According to the Adult Thrombosis Prophylaxis Risk Factor Assessment Guide, the patient has a total risk factor score of 4 making her high risk. Lovenox 40 mg subcutaneous daily will be utilized as DVT prophylaxis. 7. Code status is full. TIME SPENT: Fifty minutes was spent admitting this patient; greater than half spent [id number] with the patient's reviewing her history and then performing physical exam. [id number] #: [id number] [id number]
[2019-02-28] MEDS ORDERED: predniSONE TAB* 50 MG PO SCH (09:00)
[2019-02-28 09:48] LABS: ABS Lymphocytes 0.9 10^3/ul (1.0-4.8); ABS Monocytes 0.4 10^3/ul (0-0.8); ABS Neutrophils 4.7 10^3/ul (1.5-7.7); Eosinophil % 0.4 %; Hematocrit 35 % (35-47); Hemoglobin 12.2 g/dL (12.0-16.0); Lymphocyte % 15.1 %; Mean Corpuscular HGB Conc 35 g/dL (31-36); Mean Corpuscular Hemoglobin 31 pg (27-31); Mean Corpuscular Volume 90 fL (80-97); Mean Platelet Volume 7.4 fL (7.4-10.4); Nucleated Red Blood Cells % 0.1; Platelet Count 242 10^3/uL (150-450); Red Blood Count 3.93 10^6 /uL (3.70-4.87); Red Cell Distribution Width 19 % (10-15)
[2019-02-28 10:02] LABS: Albumin 3.1 g/dL (3.2-5.2); Albumin/Globulin Ratio 1.2 (1-3); BUN/Creatinine Ratio 25.4 (8-20); Calcium 8.2 mg/dL (8.6-10.3); EGFR African American 108.3 (>60); EGFR Non-African American 89.5 (>60); Globulin 2.6 g/dL (2-4); Indirect Bilirubin 0.3 mg/dL (0.3-1.0); Magnesium 1.9 mg/dL (1.9-2.7); Phosphorus 2.4 mg/dL (2.5-5.0); Potassium 3.2 mmol/L (3.5-5.0); Total Bilirubin 0.4 mg/dL (0.2-1.0); Total Protein 5.7 g/dL (6.4-8.9)
[2019-02-28 12:56] LABS: Urine Appearance Cloudy; Urine Bilirubin Negative (Negative); Urine Blood Negative (Negative); Urine Color Yellow; Urine Glucose Negative (Negative); Urine Ketones Negative (Negative); Urine Nitrite Negative (Negative); Urine Protein Negative (Negative); Urine Specific Gravity 1.015 (1.010-1.030); Urine Urobilinogen Negative (Negative)
[2019-02-28 12:59] LABS: Urine Benzodiazepine Screen None Detected (None Detect); Urine Opiates Screen None Detected (None Detect)
[2019-02-28] MEDS: LORazepam TAB(*) 1 MG PO PRN ×2 (14:07→21:22)
--- NOTE | 2019-02-28 20:59 | DS ---
CC: Dr. Neri; Dr. Juan Antonio Srinivasan * DISCHARGE SUMMARY: DATE OF ADMISSION: 02/28/19, 4 o'clock in the morning. DATE OF DISCHARGE: 02/28/19 FINAL DISCHARGE DIAGNOSES: 1. Acute encephalopathy secondary to autoimmune encephalitis. 2. Hyponatremia. 3. History of melanoma. 4. The patient signed against medical advice. HOSPITAL COURSE: The patient presented to [facility] on 02/28/19 for agitation and confusion at home shortly after retiring to bed, described as physical agitation, trying to jump out of bed, out of window, throwing stuff off the shelf. Apparently, the patient was hospitalized at [facility] in [place] and she was diagnosed with autoimmune encephalitis and currently she is being treated with IVIG and steroid therapy. She was sent home on a tapered dose of steroid. Initially, she was at 60 mg, then 50 mg daily for a week, then currently she was at 40 mg. Sharply after being at 40 mg , she started having some relapse of her symptoms and her did get in touch with her neurologist on [place] and they advised to start her back on 50 mg and they started on risperidone. Apparently, the patient got worse since starting the risperidone and finally yesterday, her symptoms got so severe he brought her to the ER. The patient was admitted to our medical service. There was no witnessed seizures. She was giving some Ativan 2 mg and she had significant improvement mentation [place] within 20 minutes. She was appropriately , had a full conversation and the himself stated that that was the most normal conversation that he had in sometime. The patient was admitted to our service. I did see the patient for the initial encounter on the following morning on the floor. I got contacted by her neurologist, Dr. Morillo. Case was reviewed briefly over the phone and kindly accepted the patient to be transferred back to their facility at [facility]. The accepting physician was Dr. Dino Marie. After several phone calls arranging for the transfer with the accepting physician and was scheduled to be admitted at 11 o'clock in the morning for the following day. Unfortunately, the patient was not willing to sign the agreement for the transport via our [facility] as the patient may incur the cost of the whole transport. Therefore, they decided to cancel the transfer. The signed the patient AMA and was planning to take her himself to the facility at [facility]. I did recontact the transfer center and I spoke with our facility and the transfer center at the receiving facility and informed them of the change in the plan and the patient signed against medical advice and he will be taking her to the emergency room. AMA form signed with full knowledge that the patient may incur worsening conditioning with possible seizure, which may lead to . Fully acknowledged the risks and signed AMA. DISCHARGE MEDICATIONS: The patient is to resume her Prednisone 50 mg. I did send a prescription for lorazepam 1 mg every 4 hours p.r.n. INPATIENT DIAGNOSTIC STUDIES: She had CT scan in the emergency room on arrival , which was no acute abnormality seen. Chest x-ray, no acute pulmonary disease. DISCHARGE CONDITION: Guarded. The patient was signed against medical advice. DISCHARGE DISPOSITION: To the custody of her with a strong advice to seek immediate medical attention through the nearest emergency room while he is planning to take her to [facility]. [id number]/CPS #: [id number] BRITTANY
[2019-02-28] MEDS ORDERED: Enoxaparin(*) 40 MG/0.4 ML SYR SUBCUT SCH (21:00)
[2019-03-01 03:45] VITALS: BP 142/91
== END 2019-03-01 06:10 | disposition left against medical advice (07) ==
LOC: ED 01:06 → MED 03:58 → INTOOBSV 03:58
PROVIDERS: ADMIT Hospitalist; ATTEND Internal Medicine
DX: G93.40 Encephalopathy, unspecified (principal); G04.90 Encephalitis and encephalomyelitis, unspecified; E87.1 Hypo-osmolality and hyponatremia; Z85.820 Personal history of malignant melanoma of skin; Z53.21 Procedure and treatment not carried out due to patient leaving prior to being seen by health care provider; I10 Essential (primary) hypertension; K21.9 Gastro-esophageal reflux disease without esophagitis; R45.1 Restlessness and agitation; R44.3 Hallucinations, unspecified
CPT/HCPCS: 36415; 70450; 71045; 80048; 80053; 80076; 80307; 81003; 82550; 82607; 83605; 83735; 84100; 85025; 85610; 85730; 86140; 96361; 96372; 96374; 99284; A9270-GY; G0378; J1650; J2060; J7512